=== PATIENT | female | born 1965 | race Caucasian/White ===

== ENCOUNTER → 2017-12-16 15:04 | Outpatient (CLI) | payer MEDICAID, SELFPAY ==
--- NOTE | 2017-12-16 15:09 | RAD_ITS ---
STUDY: X-RAY CHEST REASON FOR EXAM: Female, 52 years old. Defibrillator and Pacemaker placed on July 12, 2010. History of breast cancer, and R radical mastectomy TECHNIQUE: Frontal and lateral view of the chest. COMPARISON: July 06, 2014 FINDINGS: There is a left sided pacemaker battery pack. There are multiple metallic clips in the right axilla. This is consistent for a prior axillary dissection. There are mastectomy changes noted. The lungs are clear and expanded. There is no demonstrated pleural abnormality. Normal size heart. Normal mediastinum and sara. Normal visualized pulmonary arteries. Normal visualized aortic arch and descending thoracic aorta. There are diffuse degenerative changes of the visualized thoracic spine. Normal visualized ribs, clavicles, and shoulders. There is no demonstrated abnormality of the visualized soft tissue structures of the upper abdomen. RAD/Chest PA and Lateral IMPRESSION: There are no acute findings in the chest. Electronically Signed: Devante Kay MD at 16:46 EDT , Service support ,
[2017-12-16 16:39] LABS: Hematocrit 45.9 % (37-47); Hemoglobin 15.2 g/dl (12.0-15.0); Mean Corp Hgb Conc 33.1 g/gl (32-36); Mean Corpuscular Hgb 28.7 pg (27.0-32.0); Mean Corpuscular Volume 86.6 fL (81-99); Mean Platelet Vol. 12.3 fl (6.2-12.0); Platelet Count 229 K/mm3 (150-450); RBC Distribution Width CV 14.3 % (11.6-14.6); RBC Distribution Width SD 45.2 fl (35.1-43.9); White Blood Count 17.4 K/mm3 (4.4-11.0)
[2017-12-16 16:43] LABS: Scan Indicated on CBC? Y/N NO
[2017-12-16 16:47] LABS: International Normalized Ratio 1.1; Prothrombin Time (Protime)PT. 13.8 SECONDS (11.7-14.9)
[2017-12-16 17:06] LABS: Anion Gap 9 (5-15); BUN 14 mg/dL (7-18); Calcium,Total 8.9 mg/dL (8.5-10.1); Chloride 106 mmol/L (98-107); Creatinine, Serum 0.88 mg/dL (0.55-1.02); EST Glomerular Filtration Rate 71 mL/min (>60); Est Glom Filt Rate - Afr Amer 86 mL/min (>60); Glucose 108 mg/dL (74-106); Potassium 3.7 mmol/L (3.5-5.1); Sodium Level 137 mmol/L (136-145)
== END ==
PROVIDERS: Family Provider Student in an Organized Health Care Education/Training Program; PCP Student in an Organized Health Care Education/Training Program; Referring Provider Internal Medicine Cardiovascular Disease; Visit Provider Internal Medicine Cardiovascular Disease
DX: I42.0 Dilated cardiomyopathy (principal); I47.9 Paroxysmal tachycardia, unspecified; I47.1 Supraventricular tachycardia; I42.9 Cardiomyopathy, unspecified; I47.2 Ventricular tachycardia; R55 Syncope and collapse; Z95.810 Presence of automatic (implantable) cardiac defibrillator
CPT/HCPCS: 36415; 71046; 80048; 85027; 85610

== ENCOUNTER 2018-01-08 09:27 | Day surgery (SDC) | payer MEDICAID, SELFPAY ==
[2017-12-24 12:10] LABS: Bacteria 0 SEEN /hpf (None Seen); Mucous, Urine 0 SEEN /hpf (<or=2+); Red Blood Cells-Urine 0 SEEN /hpf (0-5); Squamous Epithelial Cells - UA 0 SEEN /hpf (5-10); White Blood Cells 0 SEEN /hpf (0-5)
[2017-12-24 12:37] LABS: Color, Urine Yellow (Yellow); Glucose, Dipstick Normal (Normal); Ketone-Dipstick Negative (Negative); Leukocyte Esterase-Dipstick Negative /ul (Negative); Nitrite-Dipstick Negative (Negative); Occult Blood-Urine Negative /ul (Negative); Protein-Dipstick Negative (Negative); Urine Bilirubin Dipstick Negative (Negative); Urine Clarity Clear (Clear); Urine Urobilinogen Normal (Normal); Urine pH 6.5 (5.0 - 8.0)
[2018-01-07 09:03] VITALS: BMI 51.0
--- NOTE | 2018-01-08 11:30 | OP.PCM_ITS ---
Operative Report Date of Procedure: 01/08/18 Preoperative diagnosis is device at end of life for normal battery depletion. Postoperative diagnosis same as above. After informed consent and IV antibiotics the patient was brought to the [facility] catheterization laboratory and the skin over the device was prepped and draped in the usual sterile manner. Intermittent boluses of Versed, fentanyl and propofol were used for sedation and analgesia as well as 1% subcutaneous lidocaine. An incision was made over the pre-existing device. Using blunt and Bovie dissection the pocket was opened and the device was removed. Careful attention was paid not to injure the pre-existing leads. The leads were removed from the device header and they were interrogated. There is normal lead function. Hemostasis was obtained. The pocket was flushed with antibiotic solution. The sponge and needle count were correct. The new device was brought to the field. The leads were placed in the appropriate position in the header and secured by the set screw. The leads and the device were then placed in the pocket. The pocket was closed with a deep layer of running 2-0 Vicryl, a superficial layer of running 4-0 Vicryl, skin with Steri-Strips which were covered with a rolled 4 x 4 and Tegaderm. Patient left the room with the device programmed to proper parameters and there were no complications. All lead parameters were tested and found to be functionally normal. The device is a single chamber dual coil [employer] ICD. Lead and device serial and model numbers are available in the chart documents provided by the device company indirect sales representative procedure summary.
== END 2018-01-08 13:15 | disposition home or self-care (01) ==
PROVIDERS: Family Provider Student in an Organized Health Care Education/Training Program; PCP Student in an Organized Health Care Education/Training Program; Referring Provider Internal Medicine Cardiovascular Disease; Visit Provider Internal Medicine Cardiovascular Disease
DX: Z45.010 Encounter for checking and testing of cardiac pacemaker pulse generator [battery] (principal); I42.9 Cardiomyopathy, unspecified; Z95.810 Presence of automatic (implantable) cardiac defibrillator; I47.1 Supraventricular tachycardia; I47.2 Ventricular tachycardia; F43.10 Post-traumatic stress disorder, unspecified; K21.9 Gastro-esophageal reflux disease without esophagitis; E03.9 Hypothyroidism, unspecified; E66.9 Obesity, unspecified; Z68.43 Body mass index [BMI] 50.0-59.9, adult; Z79.82 Long term (current) use of aspirin; Z79.899 Other long term (current) drug therapy; Z87.891 Personal history of nicotine dependence
CPT/HCPCS: 33262; 81001; 93641; 99152; J7040; J7050

== ENCOUNTER → 2018-02-12 13:37 | Outpatient (CLI) | payer MEDICAID, SELFPAY ==
[2018-01-07 09:03] VITALS: BMI 51.0
--- NOTE | 2018-02-12 13:39 | ECHOD_ITS ---
Reason For Study: ARRHYTHMIA Procedure This was a 2D Doppler, Color Flow transthoracic echocardiogram. Poor quality apical images due to body habitus. UNABLE TO USE DEFINITY DUE TO ADVERSE REACTION ON PREVIOUS STUDY. The study was technically difficult. Exam performed in department. Left Ventricle Normal LV size. Mild global left ventricular systolic dysfunction. The estimated ejection fraction is 40 %. No evidence for diastolic dysfunction. Right Ventricle Normal RV size. ICD or pacer leads identified within the right ventricle. Normal systolic function. Atria Normal left atrium. Normal right atrium. ICD or pacer leads identified within the right atrium. No doppler evidence for ASD. Mitral Valve There is no mitral annular calcification. Normal mitral valve. Mild (1+) mitral valve insufficiency. Tricuspid Valve Normal tricuspid valve. Trivial tricuspid valve insufficiency. Right ventricular systolic pressure estimated to be 22 mmHg. Aortic Valve The aortic valve is not well visualized. Pulmonic Valve The pulmonic valve is not well visualized. Trivial pulmonic valve insufficiency. Great Vessels Normal sized aortic root. Pericardium/Pleural No pericardial effusion. Medication DO NOT USE DEFINITY. MMode/2D Measurements & Calculations LVIDd: 4.7 cm IVSd: 0.89 cm Ao root diam: 2.7 cm LVIDs: 3.1 cm LVPWd: 0.95 cm RVDd: 3.1 cm FS: 34.7 % LAV(MOD-bp): 47.8 ml LA A4 area: 14.2 cm2 LA dimension(2D): 3.7 cm LAV(MOD-bp) Indexed: 22.2 ml/m2 LAV(MOD-sp2): 61.9 ml LAV(MOD-sp4): 35.4 ml RA A4 area: 11.4 cm2 Time Measurements MV dec time: 0.24 sec Doppler Measurements & Calculations MV E max ran: 66.9 cm/sec Lat Peak E' Ran: 9.2 cm/sec Med Peak E' Ran: 6.2 cm/sec MV A max ran: 51.4 cm/sec E/E' lat: 7.2 E/E' med: 10.8 MV E/A: 1.3 Ao V2 max: 112.5 cm/sec LV V1 max: 89.4 cm/sec PA V2 max: 89.2 cm/sec Ao max P.1 mmHg LV V1 max P.2 mmHg PI end-d ran: 108.5 cm/sec TR max ran: 216.5 cm/sec TR max P.8 mmHg Interpretation Summary The study was technically difficult. Mild global left ventricular systolic dysfunction. The estimated ejection fraction is 40 %. Mild (1+) mitral valve insufficiency. Trivial tricuspid valve insufficiency. Trivial pulmonic valve insufficiency. Right ventricular systolic pressure estimated to be 22 mmHg. No evidence for diastolic dysfunction. ICD or pacer leads identified within the right atrium ICD or pacer leads identified within the right ventricle. Ordering Physician: Chris Bang Referring Physician: TARA STACY Performed By: Iliana Ferrera, ALIDA, RVT
== END ==
PROVIDERS: Family Provider Student in an Organized Health Care Education/Training Program; PCP Student in an Organized Health Care Education/Training Program; Referring Provider Internal Medicine Cardiovascular Disease; Visit Provider Internal Medicine Cardiovascular Disease
DX: I47.1 Supraventricular tachycardia (principal); I42.9 Cardiomyopathy, unspecified; I47.2 Ventricular tachycardia; I47.9 Paroxysmal tachycardia, unspecified; Z95.810 Presence of automatic (implantable) cardiac defibrillator
CPT/HCPCS: 93306

== ENCOUNTER → 2018-11-09 10:51 | Outpatient (CLI) | payer MEDICAID, SELFPAY ==
[2018-09-23 15:16] VITALS: BMI 48.6
--- NOTE | 2018-11-09 10:52 | RAD_ITS ---
STUDY: X-RAY - RIGHT KNEE REASON FOR EXAM: Female, 53 years old. Pain TECHNIQUE: 4 view(s) of the knee. COMPARISON: None. FINDINGS: There is no evidence of fracture or dislocation. Moderate tricompartmental degenerative changes are present, greatest in the medial compartment. There are no radiodense foreign bodies. RAD/Knee 4 or More Views IMPRESSION: No fracture or dislocation. Moderate tricompartmental degenerative changes, greatest in the medial compartment. Electronically Signed: Barrie Rivas, at 19:07 EDT Tel , Service support ,
== END ==
PROVIDERS: Family Provider Student in an Organized Health Care Education/Training Program; PCP Student in an Organized Health Care Education/Training Program; Referring Provider Orthopaedic Surgery; Visit Provider Orthopaedic Surgery
DX: M17.11 Unilateral primary osteoarthritis, right knee (principal)
CPT/HCPCS: 73564

== ENCOUNTER → 2020-05-23 06:38 | Outpatient (CLI) | payer MEDICAID, SELFPAY ==
[2019-11-12 15:20] VITALS: BMI 48.2
[2020-05-11 10:28] VITALS: BMI 48.2
--- NOTE | 2020-05-23 06:40 | ECHOD_ITS ---
Reason For Study: Arrhythmia Procedure This was a 2D Doppler, Color Flow transthoracic echocardiogram. The study was technically difficult. UNABLE TO USE DEFINITY DUE TO ADVERSE REACTION ON PREVIOUS STUDY. Exam performed in department. Left Ventricle Normal LV size. Mild global left ventricular systolic dysfunction. The estimated ejection fraction is 45 %. Septal bounce. No evidence for diastolic dysfunction. Right Ventricle Normal RV size. ICD or pacer leads identified within the right ventricle. Normal systolic function. Atria Normal left atrium. Normal right atrium. ICD or pacer leads identified within the right atrium. No doppler evidence for ASD. Mitral Valve There is no mitral annular calcification. Normal mitral valve. Trivial mitral valve insufficiency. Tricuspid Valve Normal tricuspid valve. Trivial tricuspid valve insufficiency. Right ventricular systolic pressure estimated to be 21 mmHg. Aortic Valve Trisinus/trileaflet aortic valve. Normal aortic valve. Pulmonic Valve The pulmonic valve is not well visualized. Great Vessels Normal sized aortic root. Pericardium/Pleural No pericardial effusion. MMode/2D Measurements & Calculations LVIDd: 4.3 cm IVSd: 1.1 cm Ao root diam: 2.8 cm LVIDs: 3.4 cm LVPWd: 1.2 cm RVDd: 2.9 cm FS: 21.0 % LAV(MOD-bp): 26.8 ml LA A4 area: 13.2 cm2 LA dimension(2D): 3.4 cm LAV(MOD-bp) Indexed: 12.2 ml/m2 LAV(MOD-sp2): 23.4 ml LAV(MOD-sp4): 31.4 ml RA A4 area: 13.8 cm2 Doppler Measurements & Calculations MV E max ran: 57.1 cm/sec Lat Peak E' Ran: 6.5 cm/sec Med Peak E' Ran: 5.2 cm/sec MV A max ran: 76.3 cm/sec E/E' lat: 8.8 E/E' med: 10.9 MV E/A: 0.75 Ao V2 max: 116.9 cm/sec LV V1 max: 95.0 cm/sec PA V2 max: 96.5 cm/sec Ao max P.5 mmHg LV V1 max P.6 mmHg TR max ran: 211.4 cm/sec TR max P.0 mmHg ECHO/Echo Complete Interpretation Summary The study was technically difficult. Mild global left ventricular systolic dysfunction. The estimated ejection fraction is 45 %. Septal bounce. Trivial mitral valve insufficiency. Trivial tricuspid valve insufficiency. Right ventricular systolic pressure estimated to be 21 mmHg. No evidence for diastolic dysfunction. ICD or pacer leads identified within the right atrium ICD or pacer leads identified within the right ventricle. Ordering Physician: Wellington Melvin Referring Physician: Chris Bang Performed By: Neli Fontenot, [facility]
--- NOTE | 2020-05-23 09:24 | STRESSREP_ITS ---
Stress Test Report Date: 05-23-2020 Procedure: Pharmacologic stress nuclear imaging study Indications: Chest pain; CAD; cardiomyopathy; SVT; ventricular tachycardia; ICD Consent: Per the patient Procedure: The patient underwent pharmacologic (Regadenoson 0.4mg ) evaluation with a peak heart rate of 88 beats per minute (53%predicted maximal heart rate) and a peak blood pressure of 142/88 mmHg. The baseline ECG demonstrated sinus rhythm. The peak pharmacologic ECG demonstrated no obvious ECG changes. There were no cardiac dysrhythmias pretest, during pharmacologic infusion, or recovery. There was no complaint of chest discomfort during pharmacologic infusion or recovery. The examination was discontinued secondary to completion of protocol. Impression: 1. Pharmacologic (Regadenoson) evaluation 2. Peak pharmacologic ECG with no obvious ECG changes. 3. There were no cardiac dysrhythmias pretest, during pharmacologic infusion, or recovery. 4. Nuclear images pending Myocardial perfusion imaging study: Technique: The patient was injected with 14.9 millicuries of technetium 99m Cardiolite and subsequently rest SPECT Cardiolite nuclear imaging was obtained in the horizontal long, vertical long, and short axis views. The patient underwent pharmacologic (Regadenoson) evaluation with a peak heart rate of 88 beats per minute (53% percent predicted maximal heart rate) and a peak blood pressure of 142/88 mmHg. The patient was injected with 44.8 millicuries of technetium 99m Cardiolite and subsequently stress SPECT Cardiolite nuclear imaging was obtained in the horizontal long, vertical long, and short axis views. A gated Cardiolite study at peak stress was obtained. Interpretation: Rest and stress SPECT Cardiolite nuclear imaging status post realignment, normalization, and attenuation correction demonstrate relative uniform tracer uptake/myocardial perfusion appearing within normal limits at rest, however, status post stress there is an area of diminished myocardial perfusion/tracer uptake in portions of the distal anterior/anteroapical segments. There are similar type findings on the stress polar map images. There is end systolic thickening and brightening. The gated Cardiolite study demonstrates myocardial thickening and inward wall motion. The reported LVEF is 67%. Impression: 1. Rest and stress SPECT Cardiolite nuclear imaging demonstrate myocardial perfusion changes concerning for an area of stress-induced myocardial ischemia in portions of the distal anterior/anteroapical segments, however, an element of contribution from shifting soft tissue/breast attenuation not necessarily be excluded. 2. The gated Cardiolite study reports an LVEF of 67%. This note was generated with [employer] software. It may contain incorrect words, spelling, and punctuation that were not noted in checking the note before signing.
== END ==
PROVIDERS: PCP Student in an Organized Health Care Education/Training Program; Referring Provider Internal Medicine Cardiovascular Disease; Visit Provider Internal Medicine Cardiovascular Disease
DX: I47.1 Supraventricular tachycardia (principal); I47.2 Ventricular tachycardia; R55 Syncope and collapse; I42.0 Dilated cardiomyopathy; G47.33 Obstructive sleep apnea (adult) (pediatric); R07.9 Chest pain, unspecified; Z95.810 Presence of automatic (implantable) cardiac defibrillator
CPT/HCPCS: 78452; 93017; 93306; A9500; A4216; J2785

== ENCOUNTER 2020-06-14 15:54 | Inpatient (IN) | payer MEDICAID, SELFPAY ==
[2020-05-11 10:28] VITALS: BMI 48.2
--- NOTE | 2020-05-29 09:05 | HP.PCM_ITS ---
History and Physical Date of Admission: 06/13/20 [facility] History of Present Illness Details: ALEJANDRA KINSEY, is a 55 F who presents to the labelling machine operator today for a heart catheterization. She has a history of non-coronary artery disease related cardiomyopathy, SVT/ventricular tachycardia, syncope, s/p ICD. Office appointment on 05/11/2020 she acknowledged chest tightness. She underwent a nuclear stress test on 05/23/2030 that showed area of stress-induced myocardial ischemia in portions of the distal anterior/anteroapical segments, however, an element of contribution from shifting soft tissue/breast attenuation not necessarily be excluded. Thus, she will proceed with heart catheterization to assess further. She continues with chest pain that feels tight. This is intermittent. This aggravated with both rest and activity. This resolves on its own. This is short lasting. This located center chest. She denies radiation. She denies secondary symptoms. She rates this pain a 3-4/10. Pt denies arm, jaw, or neck discomfort. His exercise tolerance is stable. Pt denies symptoms of CHF, palpitations, lightheadedness, dizziness, near syncopal or syncopal episodes. Pt denies edema or claudication issues. Pt. denies orthopnea, PND, fever, chills, chronic cough, blood in urine, blood in stool, epistaxis, or myalgia. She is undergoing orthopedic injection to shoulder and knee. She states losing her balance. She states stress d/t neighbors health issues. She has not been using her CPAP mask as expected. Intake Vital Signs: See EMR Intake Visit Reasons: [facility] Architecture Drafter Required: No Accompanied by: none Is patient in pain?: No Allergies adhesive Allergy (Verified 05/11/20 10:23) Rash codeine Allergy (Verified 05/11/20 10:23) Other morphine Allergy (Verified 05/11/20 10:23) Itching tramadol Adverse Reaction (Verified 05/11/20 10:23) Unknown Medications See EMR ON LICENSE OF [facility] Medical History ICD (implantable cardioverter-defibrillator) in place (Chronic) Cardiomyopathy, dilated (Chronic) Paroxysmal tachycardia (Acute) Syncope and collapse (Chronic) SVT (supraventricular tachycardia) (Chronic) Obesity (Chronic) Ventricular tachycardia (Chronic) PTSD (post-traumatic stress disorder) (Acute) Right thyroid nodule (Acute) Carcinoma of breast (Chronic) GERD (gastroesophageal reflux disease) (Chronic) Hypothyroidism (Chronic) THALIA (obstructive sleep apnea) (Chronic) Hypotension (Resolved) Surgical History History of cardiac radiofrequency ablation (Resolved) History of cholecystectomy (Resolved) History of mastectomy (Resolved) History of nasal septoplasty (Resolved) History of repair of right rotator cuff (Resolved) History of total hysterectomy (Resolved) Hx of appendectomy (Resolved) thyroid FNA (Resolved) Social History (Updated 05/11/20 @ 13:27 by Willie Brown DIRECTOR BANKING, DIRECTOR BANKING-C) Smoking Status: Former smoker alcohol intake: never substance use type: does not use what type of physical activity do you participate in: walking frequency: 1-2 times per week ROS Const Const: Positive for fatigue; negative for weakness, body ache, fever(s) or chills ENT ENT: Positive for balance problems; negative for dizziness Cardio Chest Pain: Yes Palpitations: No Edema: None Muscle aches with walking: None Resp Respiratory: Negative for SOB with activity, SOB at rest, SOB orthopnea\SOB lying down or paroxysmal nocturnal dyspnea GI GI: Negative nausea, vomiting blood/hematemesis, bright, red blood in stools or black,tarry stools : Negative for hematuria or frequent nighttime urination/ nocturia Musc Musc: Positive for balance problems; negative for muscle aches/ myalgia Skin Skin: Negative non-healing lesions or rash Neuro Neuro: Negative for dizziness, lightheadedness, near syncope, syncope, orthostatic symptoms or weakness Endo Endo: Positive for fatigue Allergy Allergy/Immunology: Negative for rash Cardiology Exam Const Appearance: cooperative, healthy appearing, comfortable and no acute distress Nutritional Appearance: well nourished and obese Orientation: alert, awake and oriented x3 Head Head: normal to inspection Ears: hearing grossly normal bilaterally Nose: external nose normal Face and Sinus: face symmetric Mouth: oral mucosae normal Eyes General: appearance normal, both eyes and all related structures Eyelids: eyelids normal EOM: EOM intact bilaterally Neck Neck: normal visual inspection and no JVD Carotids: normal carotid upstroke Chest Chest inspection: normal inspection of the chest, symmetric chest movement and normal respiratory effort; negative cough Auscultation: Bilateral: Clear to Auscultation Cardio Rate: regular rate Rhythm: regular rhythm Heart sounds: S1 normal and S2 normal; negative rub, gallop or murmur GI GI: normal to inspection and obese Neuro General: alert, awake, oriented x3 and CN's II-XI intact bilaterally Skin Skin: no rashes or lesions noted Extremities Pulses: Normal: Right Radial Pulse, Left Radial Pulse, Diminished: Right Posterior Tibial Pulse, Left Posterior Tibial Pulse Lower Extremity Edema: None: Bilateral, Color Changes: Bilateral (purple di scoloration at toes) Psych Psychological: normal affect Assessment & Plan 1. Chest pain R07.9 Plan On account of symptoms and abnormal stress test, she will proceed with heart catheterization. Her heart catheterization November 2013 showed left main is angiographically normal, LAD with minimal luminal irregularities, LCx with minimal luminal irregularities, and RCA that was a large dominant vessel with minimal luminal irregularities. Based on results, further recommendation will be made. She was started on Plavix therapy with respect to heart catheterization. Her heart catheterization will also guide treatment in respect to flecainide therapy. 2. Cardiomyopathy, dilated I42.0 Plan After last office visit she underwent an echocardiogram on 05/23/2020. This showed an ejection fraction of 45%. Her RVSP was noted to be 21 mmHg. Over time, we could consider medication adjustment such of changing metoprolol tartrate to Coreg therapy or adding additional agent such as YESI inhibito r/ARB/ARNI. 3. Ventricular tachycardia I47.2 Plan This appears stable. She will continue current medical therapy which includes metoprolol and flecainide. We will continue to monitor. 4. ICD (implantable cardioverter-defibrillator) in place Z95.810 Plan At her last office visit it was decided to stop routine ICD evaluation. She was asked to contact our office if she desires reinitiating routine ICD evaluations at any time. 5. Syncope and collapse R55 Plan There has not been any recurrence. We will continue to monitor. 6. SVT (supraventricular tachycardia) I47.1 Plan She denies any symptomatic recurrence. She will continue current beta-jacquelin and we will continue to monitor. Supplemental Info Supplemental Information Echocardiogram from 05/23/2020: Interpretation Summary The study was technically difficult. Mild global left ventricular systolic dysfunction. The estimated ejection fraction is 45 %. Septal bounce. Trivial mitral valve insufficiency. Trivial tricuspid valve insufficiency. Right ventricular systolic pressure estimated to be 21 mmHg. No evidence for diastolic dysfunction. ICD or pacer leads identified within the right atrium ICD or pacer leads identified within the right ventricle. Stress Test Report Date: 05-23-2020 Procedure: Pharmacologic stress nuclear imaging study Indications: Chest pain; CAD; cardiomyopathy; SVT; ventricular tachycardia; ICD Consent: Per the patient Procedure: The patient underwent pharmacologic (Regadenoson 0.4mg ) evaluation with a peak heart rate of 88 beats per minute (53%predicted maximal heart rate) and a peak blood pressure of 142/88 mmHg. The baseline ECG demonstrated sinus rhythm. The peak pharmacologic ECG demonstrated no obvious ECG changes. There were no cardiac dysrhythmias pretest, during pharmacologic infusion, or recovery. There was no complaint of chest discomfort during pharmacologic infusion or recovery. The examination was discontinued secondary to completion of protocol. Impression: 1. Pharmacologic (Regadenoson) evaluation 2. Peak pharmacologic ECG with no obvious ECG changes. 3. There were no cardiac dysrhythmias pretest, during pharmacologic infusion, or recovery. 4. Nuclear images pending Myocardial perfusion imaging study: Technique: The patient was injected with 14.9 millicuries of technetium 99m Cardiolite and subsequently rest SPECT Cardiolite nuclear imaging was obtained in the horizontal long, vertical long, and short axis views. The patient underwent pharmacologic (Regadenoson) evaluation with a peak heart rate of 88 beats per minute (53% percent predicted maximal heart rate) and a peak blood pressure of 142/88 mmHg. The patient was injected with 44.8 millicuries of technetium 99m Cardiolite and subsequently stress SPECT Cardiolite nuclear imaging was obtained in the horizontal long, vertical long, and short axis views. A gated Cardiolite study at peak stress was obtained. Interpretation: Rest and stress SPECT Cardiolite nuclear imaging status post realignment, normalization, and attenuation correction demonstrate relative uniform tracer uptake/myocardial perfusion appearing within normal limits at rest, however, status post stress there is an area of diminished myocardial perfusion/tracer uptake in portions of the distal anterior/anteroapical segments. There are similar type findings on the stress polar map images. There is end systolic thickening and brightening. The gated Cardiolite study demonstrates myocardial thickening and inward wall motion. The reported LVEF is 67%. Impression: 1. Rest and stress SPECT Cardiolite nuclear imaging demonstrate myocardial perfusion changes concerning for an area of stress-induced myocardial ischemia in portions of the distal anterior/anteroapical segments, however, an element of contribution from shifting soft tissue/breast attenuation not necessarily be excluded. 2. The gated Cardiolite study reports an LVEF of 67%. Heart catheterization from November 2013 Showed a left main coronary artery that was angiographically normal, LAD with minimal luminal irregularities, LCx with minimal luminal irregularities, and RCA that was a large dominant vessel with minimal luminal irregularities. Her estimated ejection fraction was 50%, and it was noted that she had mild mitral valve regurgitation which appeared to be partially PVC induced. Labs LDL Cholesterol 106 mg/dL (0-130) 04/14/14 HDL Cholesterol 43 mg/dL (40-) 04/14/14 Triglycerides 175 mg/dL (0-199) 04/14/14 VLDL Cholesterol 35 mg/dL (5-40) 04/14/14 Diagnostics Electrocardiogram 05/11/20 Echocardiogram 02/12/18 Pacemaker Check 01/23/18 Abdomen Ultrasound 10/14/14 Chest X-Ray 12/16/17 Procedure Criteria Procedure Type: Elective COVID Risk Discussion: The surgeon/proceduralist and patient have discussed in detail the risk of exposure to and/or potential harm posed by the COVID-19 virus with having a surgery/procedure at this time versus the risk of delaying the surgery/procedu re. It is not possible to know either the risk of delaying the surgery or procedure or chance of getting an infection with perfect accuracy, but a joint decision was made between the patient and the surgeon/proceduralist to proceed at this time with the scheduled surgery/procedure as indicated on the consent form.
--- NOTE | 2020-05-31 11:50 | RAD_ITS ---
STUDY: X-RAY CHEST REASON FOR EXAM: Female, 55 years old. Pre-operative TECHNIQUE: Frontal and lateral views COMPARISON: 12/16/2017 FINDINGS: Surgical clips over the right axilla. Stable left-sided pacemaker. The lungs are clear and expanded. There is no demonstrated pleural abnormality. Normal size heart. Normal mediastinum and sara. Normal visualized pulmonary arteries. Normal visualized aortic arch and descending thoracic aorta. Normal visualized thoracic spine. Normal visualized ribs, clavicles, and shoulders. There is no demonstrated abnormality of the visualized soft tissue structures of the upper abdomen. RAD/Chest PA and Lateral IMPRESSION: Normal x-ray examination of the chest. Electronically Signed: Olu Perkins DO at 16:56 EDT Tel [phone], Service support ,
[2020-05-31 12:27] LABS: Absolute Lymphocyte Count 2.05 X10^3/uL (0.83-4.51); Basophil# 0.05 X10^3/uL; Basophil% 0.5 % (0-1); Hematocrit 48.7 % (37-47); Hemoglobin 15.1 g/dL (12.0-15.0); Lymphocyte # 2.05 X10^3/ul (4.0); Lymphocyte % 20.7 % (19-41); Mean Corpuscular Hgb 28.6 pg (27.0-32.0); Mean Corpuscular Volume 92.2 fL (81-99); Mean Platelet Vol. 10.6 fl (6.2-12.0); Monocyte# 0.68 X10^3/uL; Monocyte% 6.9 % (0-10); NRBC Flagged by Analyzer 0 % (0-5); Neutrophil # 6.97 X10^3/uL (2.7-7.7); Neutrophil % 70.4 % (47-70); Platelet Count 244 K/mm3 (150-450); RBC Distribution Width CV 14.8 % (11.6-14.6); RBC Distribution Width SD 50.4 fl (35.1-43.9); Red Blood Count 5.28 M/mm3 (4.2-5.4); White Blood Count 9.9 K/mm3 (4.4-11.0)
[2020-05-31 12:39] LABS: Prothrombin Time (Protime)PT. 12.5 SECONDS (11.7-14.9)
[2020-05-31 12:40] LABS: Partial Thromboplast Time 25.9 Seconds (24.1-36.2)
[2020-05-31 12:46] LABS: Anion Gap 1 (5-15); BUN 16 mg/dL (7-18); Calcium,Total 9.4 mg/dL (8.5-10.1); Chloride 107 mmol/L (98-107); Creatinine, Serum 1.07 mg/dL (0.55-1.02); EST Glomerular Filtration Rate 56 mL/min (>60); Est Glom Filt Rate - Afr Amer 68 mL/min (>60); Glucose 89 mg/dL (74-106); Potassium 4.7 mmol/L (3.5-5.1); Sodium Level 137 mmol/L (136-145)
[2020-06-12 07:05] VITALS: BMI 48.2
[2020-06-13] VITALS (14 sets, daily range): BP systolic 133–170; BP diastolic 77–111; PULSE 75–87; RESP 16–18; TEMP 36.3–37; O2SAT 99–100; BMI 50.3
--- NOTE | 2020-06-13 07:42 | PCM.HP.BLA ---
Problem List (1) Abnormal stress test Status: Acute (2) Cardiomyopathy, dilated Status: Chronic (3) Syncope and collapse Status: Chronic (4) SVT (supraventricular tachycardia) Status: Chronic (5) Ventricular tachycardia Status: Chronic (6) ICD (implantable cardioverter-defibrillator) in place Status: Chronic History and Physical Date of Admission: 06/13/20 [facility] Medical Records Department [address] [place] [address] History and Physical 05/29/20 0905 MR#: [id number] Acct: [id number] Name: ALEJANDRA KINSEY Rep #: [id number] : 1965 55 From: Willie Brown NP ECONOMIC SPECIALIST-C PCP: Dr. Wellington Melvin, DO Status: PRE [facility] Location: [facility] History and Physical Date of Admission: 06/13/20 HPI HPI History of Present Illness Details: ALEJANDRA KINSEY, is a 55 F who presents to the cardiovascular lab director today for a heart catheterization. She has a history of non-coronary artery disease related cardiomyopathy, SVT/ventricular tachycardia, syncope, s/p ICD. Office appointment on 05/11/2020 she acknowledged chest tightness. She underwent a nuclear stress test on 05/23/2030 that showed area of stress-induced myocardial ischemia in portions of the distal anterior/anteroapical segments, however, an element of contribution from shifting soft tissue/breast attenuation not necessarily be excluded. Thus, she will proceed with heart catheterization to assess further. She continues with chest pain that feels tight. This is intermittent. This aggravated with both rest and activity. This resolves on its own. This is short lasting. This located center chest. She denies radiation. She denies secondary symptoms. She rates this pain a 3-4/10. Pt denies arm, jaw, or neck discomfort. His exercise tolerance is stable. Pt denies symptoms of CHF, palpitations, lightheadedness, dizziness, near syncopal or syncopal episodes. Pt denies edema or claudication issues. Pt. denies orthopnea, PND, fever, chills, chronic cough, blood in urine, blood in stool, epistaxis, or myalgia. She is undergoing orthopedic injection to shoulder and knee. She states losing her balance. She states stress d/t neighbors health issues. She has not been using her CPAP mask as expected. Intake Vital Signs: See EMR Intake Visit Reasons: [facility] Spray Drier Required: No Accompanied by: none Is patient in pain?: No Allergies adhesive Allergy (Verified 05/11/20 10:23) Rash codeine Allergy (Verified 05/11/20 10:23) Other morphine Allergy (Verified 05/11/20 10:23) Itching tramadol Adverse Reaction (Verified 05/11/20 10:23) Unknown Medications See EMR [facility] Medical History ICD (implantable cardioverter-defibrillator) in place (Chronic) Cardiomyopathy, dilated (Chronic) Paroxysmal tachycardia (Acute) Syncope and collapse (Chronic) SVT (supraventricular tachycardia) (Chronic) Obesity (Chronic) Ventricular tachycardia (Chronic) PTSD (post-traumatic stress disorder) (Acute) Right thyroid nodule (Acute) Carcinoma of breast (Chronic) GERD (gastroesophageal reflux disease) (Chronic) Hypothyroidism (Chronic) THALIA (obstructive sleep apnea) (Chronic) Hypotension (Resolved) Surgical History History of cardiac radiofrequency ablation (Resolved) History of cholecystectomy (Resolved) History of mastectomy (Resolved) History of nasal septoplasty (Resolved) History of repair of right rotator cuff (Resolved) History of total hysterectomy (Resolved) Hx of appendectomy (Resolved) thyroid FNA (Resolved) Social History (Updated 05/11/20 @ 13:27 by Willie Brown ECONOMIC SPECIALIST, ECONOMIC SPECIALIST-C) Smoking Status: Former smoker alcohol intake: never substance use type: does not use what type of physical activity do you participate in: walking frequency: 1-2 times per week ROS Const Const: Positive for fatigue; negative for weakness, body ache, fever(s) or chills ENT ENT: Positive for balance problems; negative for dizziness Cardio Chest Pain: Yes Palpitations: No Edema: None Muscle aches with walking: None Resp Respiratory: Negative for SOB with activity, SOB at rest, SOB orthopnea\SOB lying down or paroxysmal nocturnal dyspnea GI GI: Negative nausea, vomiting blood/hematemesis, bright, red blood in stools or black,tarry stools : Negative for hematuria or frequent nighttime urination/ nocturia Musc Musc: Positive for balance problems; negative for muscle aches/ myalgia Skin Skin: Negative non-healing lesions or rash Neuro Neuro: Negative for dizziness, lightheadedness, near syncope, syncope, orthostatic symptoms or weakness Endo Endo: Positive for fatigue Allergy Allergy/Immunology: Negative for rash Cardiology Exam Const Appearance: cooperative, healthy appearing, comfortable and no acute distress Nutritional Appearance: well nourished and obese Orientation: alert, awake and oriented x3 Head Head: normal to inspection Ears: hearing grossly normal bilaterally Nose: external nose normal Face and Sinus: face symmetric Mouth: oral mucosae normal Eyes General: appearance normal, both eyes and all related structures Eyelids: eyelids normal EOM: EOM intact bilaterally Neck Neck: normal visual inspection and no JVD Carotids: normal carotid upstroke Chest Chest inspection: normal inspection of the chest, symmetric chest movement and normal respiratory effort; negative cough Auscultation: Bilateral: Clear to Auscultation Cardio Rate: regular rate Rhythm: regular rhythm Heart sounds: S1 normal and S2 normal; negative rub, gallop or murmur GI GI: normal to inspection and obese Neuro General: alert, awake, oriented x3 and CN's II-XI intact bilaterally Skin Skin: no rashes or lesions noted Extremities Pulses: Normal: Right Radial Pulse, Left Radial Pulse, Diminished: Right Posterior Tibial Pulse, Left Posterior Tibial Pulse Lower Extremity Edema: None: Bilateral, Color Changes: Bilateral (purple discoloration at toes) Psych Psychological: normal affect Assessment & Plan 1. Chest pain R07.9 Plan On account of symptoms and abnormal stress test, she will proceed with heart catheterization. Her heart catheterization November 2013 showed left main is angiographically normal, LAD with minimal luminal irregularities, LCx with minimal luminal irregularities, and RCA that was a large dominant vessel with minimal luminal irregularities. Based on results, further recommendation will be made. She was started on Plavix therapy with respect to heart catheterization. Her heart catheterization will also guide treatment in respect to flecainide therapy. 2. Cardiomyopathy, dilated I42.0 Plan After last office visit she underwent an echocardiogram on 05/23/2020. This showed an ejection fraction of 45%. Her RVSP was noted to be 21 mmHg. Over time, we could consider medication adjustment such of changing metoprolol tartrate to Coreg therapy or adding additional agent such as YESI inhibitor/ARB/ARNI. 3. Ventricular tachycardia I47.2 Plan This appears stable. She will continue current medical therapy which includes metoprolol and flecainide. We will continue to monitor. 4. ICD (implantable cardioverter-defibrillator) in place Z95.810 Plan At her last office visit it was decided to stop routine ICD evaluation. She was asked to contact our office if she desires reinitiating routine ICD evaluations at any time. 5. Syncope and collapse R55 Plan There has not been any recurrence. We will continue to monitor. 6. SVT (supraventricular tachycardia) I47.1 Plan She denies any symptomatic recurrence. She will continue current beta-jacquelin and we will continue to monitor. Supplemental Info Supplemental Information Echocardiogram from 05/23/2020: Interpretation Summary The study was technically difficult. Mild global left ventricular systolic dysfunction. The estimated ejection fraction is 45 %. Septal bounce. Trivial mitral valve insufficiency. Trivial tricuspid valve insufficiency. Right ventricular systolic pressure estimated to be 21 mmHg. No evidence for diastolic dysfunction. ICD or pacer leads identified within the right atrium ICD or pacer leads identified within the right ventricle. Stress Test Report Date: 05-23-2020 Procedure: Pharmacologic stress nuclear imaging study Indications: Chest pain; CAD; cardiomyopathy; SVT; ventricular tachycardia; ICD Consent: Per the patient Procedure: The patient underwent pharmacologic (Regadenoson 0.4mg ) evaluation with a peak heart rate of 88 beats per minute (53%predicted maximal heart rate) and a peak blood pressure of 142/88 mmHg. The baseline ECG demonstrated sinus rhythm. The peak pharmacologic ECG demonstrated no obvious ECG changes. There were no cardiac dysrhythmias pretest, during pharmacologic infusion, or recovery. There was no complaint of chest discomfort during pharmacologic infusion or recovery. The examination was discontinued secondary to completion of protocol. Impression: 1. Pharmacologic (Regadenoson) evaluation 2. Peak pharmacologic ECG with no obvious ECG changes. 3. There were no cardiac dysrhythmias pretest, during pharmacologic infusion, or recovery. 4. Nuclear images pending Myocardial perfusion imaging study: Technique: The patient was injected with 14.9 millicuries of technetium 99m Cardiolite and subsequently rest SPECT Cardiolite nuclear imaging was obtained in the horizontal long, vertical long, and short axis views. The patient underwent pharmacologic (Regadenoson) evaluation with a peak heart rate of 88 beats per minute (53% percent predicted maximal heart rate) and a peak blood pressure of 142/88 mmHg. The patient was injected with 44.8 millicuries of technetium 99m Cardiolite and subsequently stress SPECT Cardiolite nuclear imaging was obtained in the horizontal long, vertical long, and short axis views. A gated Cardiolite study at peak stress was obtained. Interpretation: Rest and stress SPECT Cardiolite nuclear imaging status post realignment, normalization, and attenuation correction demonstrate relative uniform tracer uptake/myocardial perfusion appearing within normal limits at rest, however, status post stress there is an area of diminished myocardial perfusion/tracer uptake in portions of the distal anterior/anteroapical segments. There are similar type findings on the stress polar map images. There is end systolic thickening and brightening. The gated Cardiolite study demonstrates myocardial thickening and inward wall motion. The reported LVEF is 67%. Impression: 1. Rest and stress SPECT Cardiolite nuclear imaging demonstrate myocardial perfusion changes concerning for an area of stress-induced myocardial ischemia in portions of the distal anterior/anteroapical segments, however, an element of contribution from shifting soft tissue/breast attenuation not necessarily be excluded. 2. The gated Cardiolite study reports an LVEF of 67%. Heart catheterization from November 2013 Showed a left main coronary artery that was angiographically normal, LAD with minimal luminal irregularities, LCx with minimal luminal irregularities, and RCA that was a large dominant vessel with minimal luminal irregularities. Her estimated ejection fraction was 50%, and it was noted that she had mild mitral valve regurgitation which appeared to be partially PVC induced. Labs LDL Cholesterol 106 mg/dL (0-130) 04/14/14 HDL Cholesterol 43 mg/dL (40-) 04/14/14 Triglycerides 175 mg/dL (0-199) 04/14/14 VLDL Cholesterol 35 mg/dL (5-40) 04/14/14 Diagnostics Electrocardiogram 05/11/20 Echocardiogram 02/12/18 Pacemaker Check 01/23/18 Abdomen Ultrasound 10/14/14 Chest X-Ray 12/16/17 Procedure Criteria Procedure Type: Elective COVID Risk Discussion: The surgeon/proceduralist and patient have discussed in detail the risk of exposure to and/or potential harm posed by the COVID-19 virus with having a surgery/procedure at this time versus the risk of delaying the surgery/procedure. It is not possible to know either the risk of delaying the surgery or procedure or chance of getting an infection with perfect accuracy, but a joint decision was made between the patient and the surgeon/proceduralist to proceed at this time with the scheduled surgery/procedure as indicated on the consent form. Date Willie Bunch Signature: Date (if applicable) CC: ~ Draft I have re-examined the patient. There are no clinical changes since date of exam.
--- NOTE | 2020-06-13 11:00 | EKG12_ITS ---
Test Reason : Blood Pressure : / mmHG Vent. Rate : 069 BPM Atrial Rate : 069 BPM P-R Int : 174 ms QRS Dur : 072 ms QT Int : 376 ms P-R-T Axes : 050 010 059 degrees QTc Int : 402 ms Normal sinus rhythm Normal ECG When compared with ECG of 15-JUN-2020 05:28, MANUAL COMPARISON REQUIRED, DATA IS UNCONFIRMED Confirmed by SHA DAVALOS, ANITA ([id number]), production editor MIMI CHANG ([id number]) on 06/16/2020 8:27:41 AM Referred By: Chris Bang Confirmed By:REYNALDO DALTON MD
--- NOTE | 2020-06-13 11:30 | CL.I_ITS ---
Patient Name: ALEJANDRA KINSEY Study Date: 06/13/2020 Performing: Codey Cunningham MD Ht: 63 inches 160 cm : 1965 Wt: 271.5 lbs 123 kg Age: 55 Gender: female BSA: 2.2 PROCEDURE(S) PERFORMED [id number] W OR WO PTCA, SINGLE CORONARY ARTERY CLINICAL PROFILE AND CO-MORBIDITIES Indications: New Onset Angina <= 2 months Heart Failure: None Stress/Imaging Stress Test w/SPECT MPI: Yes Result: Positive Intermediate Risk Stress Test with S PECT MPI: Positive Intermediate Risk CAD Presentations: Unstable angina. CONCLUSIONS Successful CURTIS to the mLAD (Orsiro 3.5 x 15mm stent) RECOMMENDATIONS DESCRIPTION OF PROCEDURE The patient arrived to the procedure lab. The risks and benefits of the procedure as well as a full d escription of our services here and current unavailability of surgical backup were fully explained to the patient and/or their significant other prior to the catheterization. The Timeout was completed, verifying the correct patient and procedure. The patient's procedural site was prepped and draped in the usual fashion. Local anesthetic was given subcutaneously to right radial region with Lidocaine 2% Using a modified Seldinger technique,arterial access was obtained via the right radial artery, a 6Fr sheath was inserted. Right Coronary Artery selective angiography was then performed in multiple view s using a 5 Fr. 4.0 [place] catheter. Left Coronary Artery selective angiography was performed in multi ple views using a 5 Fr. 4.0 [place] catheter. XB 3.0 Guide catheter was inserted and engaged into the LCA. [employer] [place] Guide wire was advance d to the LAD. Mazin Pro 2.5 x 10 Balloon catheter was inserted. Balloon catheter was advanced acros s lesion in the LAD, mid. PTCA balloon inflated at 14 atms for 39 secs. Osiro 3.5 x 15 Drug Eluting s tent was inserted. Drug Eluting stent was advanced across the lesion in the LAD, mid. Mazin Ru NC 3.5 x 12 Balloon catheter was inserted. Balloon catheter was inserted post stent. Angiogram performed post balloon dilatation. The arterial sheath was pulled and a TR Band was applied for hemostasis INTERVENTION INFORMATION LESION SITE: LAD (Mid) Lesion Complexity: High/C, chronic total occlusion: No, lesion at bifurcation: No, thrombus present: No, lesion length: 12 mm, culprit lesion: Yes, Previously treated lesion: No Pre Stenosis: 80 % Pre intervention REBECCA flow: 3 PROCEDURE: Drug Eluting Stent with pre and post dilatation (Mazin pro 2.5 x 10mm for predilatation, Orsiro 3.5 x 15mm stent post dilated with Mazin Ru 3.5 x 12mm ballloon at 16 carisa) Post Stenosis: 0 % Post intervention REBECCA flow: 3 Lesion Devices: Cardinal 6 Fr XB3.0 100cm Guide Catheter [place] .014 [employer] [place] Straight 190cm COMPLICATIONS No Complications PROCEDURE MEDICATIONS Versed 1 mg IV Versed 1 mg IV Versed 1 mg IV Versed 1 mg IV Fentanyl 50 mcg IV Fentanyl 50 mcg IV Oxygen: 2 L/min via nasal cannula Heparin diluted in 23cc Heparinized saline. Patient given 10cc IA of this solution. 06/13/2020 09:00: 22 Heparin diluted in 23cc Heparinized saline. Patient given 10cc IA of this solution. 06/13/2020 09:00: 22 Heparin 34530 unit(s) IV 06/13/2020 10:23:07 Nitro 200 mcg IC 06/13/2020 10:12:58 Verapamil 2.5mg, Ntg 100mcgs, 2000 units of Heparin diluted in 23cc Heparinized saline. Patient give n 10cc IA of this solution. 06/13/2020 09:00:22 IV Bolus: .9 NaCl 500 ml total 06/13/2020 09:48:15 SUMMARY OF HEMODYNAMIC DATA Time AIR REST ECG 08:14:43 AO 141/80 (100) SA 09:03:08 AO 141/81 (107) 09:27:34 Signed By Codey Cunningham MD On 06/13/2020 11:29:58 Codey Cunningham MD
[2020-06-13] MEDS: 0.9% Normal Saline 1,000 ML 80 ML IV (12:19)
[2020-06-13] MEDS: Acetaminophen 325 MG Tablet 650 MG PO ×2 (14:18→19:49)
[2020-06-13] MEDS: tiZANidine HCl 2 MG Tablet PO ×2 (15:46→22:52)
--- NOTE | 2020-06-13 15:56 | CL.D_ITS ---
Patient Name: ALEJANDRA KINSEY Study Date: 06/13/2020 Performing: Chris Bang MD Ht: 63 inches 160 cm : 1965 Wt: 271.5 lbs 123 kg Age: 55 Gender: female BSA: 2.2 PROCEDURE(S) PERFORMED [id number]/COR [id number] W OR WO PTCA, SINGLE CORONARY ARTERY CLINICAL PROFILE AND INDICATIONS Indications: New Onset Angina <= 2 months, Suspected CAD Heart Failure: None Stress/Imaging Stress Test w/SPECT MPI: Yes Result: Positive Intermediate RiskStress Test with SP ECT MPI: Positive Intermediate Risk Angina Classification Anginal Classification w/in 2 Weeks: CCS III CAD Presentations: Unstable angina. Stable angina. CONCLUSIONS [place] Multivessel CAD RECOMMENDATIONS Risk factor modification Medical therapy Referred for immediate PCI DESCRIPTION OF PROCEDURE The patient arrived to the procedure lab. The risks and benefits of the procedure as well as a full d escription of our services here and current unavailability of surgical backup were fully explained to the patient and/or their significant other prior to the catheterization. The Timeout was completed, verifying the correct patient and procedure. The patient's procedural site was prepped and draped in the usual fashion. Local anesthetic was given subcutaneously to right radial region with Lidocaine 2% . Using a modified Seldinger technique, arterial access was obtained via the right radial artery, a 6 Fr sheath was inserted. Right Coronary Artery selective angiography was then performed in multiple v iews using a 5 Fr. 4.0 [place] catheter. Left Coronary Artery selective angiography was performed in mu ltiple views using a 5 Fr. 4.0 [place] catheter.The arterial sheath was pulled and a TR Band was applie d for hemostasis CORONARY ANGIOGRAPHY DOMINANCE: Right Dominant LEFT HEART ASSESSMENT Left Ventricular Ejection Fraction: Not assessed LEFT MAIN: Angiographically normal LEFT ANTERIOR DESCENDING ARTERY: MID LAD: hazy: 85 % Stenosis with no angiographically significant appearing change s/p NTG IC (200 mc g) CIRCUMFLEX ARTERY: Mild luminal irregularities RIGHT CORONARY ARTERY: Mild luminal irregularities COMPLICATIONS No Complications PROCEDURE MEDICATIONS Versed 1 mg IV Versed 1 mg IV Versed 1 mg IV Versed 1 mg IV Fentanyl 50 mcg IV Fentanyl 50 mcg IV Oxygen: 2 L/min via nasal cannula Heparin diluted in 23cc Heparinized saline. Patient given 10cc IA of this solution. 06/13/2020 09:00: 22 Heparin diluted in 23cc Heparinized saline. Patient given 10cc IA of this solution. 06/13/2020 09:00: 22 Heparin 95797 unit(s) IV 06/13/2020 10:23:07 Nitro 200 mcg IC 06/13/2020 10:12:58 Verapamil 2.5mg, Ntg 100mcgs, 2000 units of Heparin diluted in 23cc Heparinized saline. Patient give n 10cc IA of this solution. 06/13/2020 09:00:22 IV Bolus: .9 NaCl 500 ml total 06/13/2020 09:48:15 SUMMARY OF HEMODYNAMIC DATA Time AIR REST ECG 08:14:43 AO 141/80 (100) SA 09:03:08 AO 141/81 (107) 09:27:34 Signed By Chris Bang MD On 06/13/2020 15:55:59 Chris Bang MD
[2020-06-13] MEDS: Potassium Chloride Oral Tablet 20 MEQ 40 MEQ PO (17:43)
[2020-06-13] MEDS: LORazepam 0.5 MG Tablet PO (19:49)
--- NOTE | 2020-06-13 21:00 | PN.CARD_ITS ---
Subjectve: The patient is status post diagnostic cardiac catheterization. She appears to be resting comfortably at the moment with the exception of having some generalized sensation of anxiety and right upper extremity discomfort. Objective: Vital Signs Temp Pulse Resp BP Pulse Ox 97.3 F L 81 18 150/93 H 100 06/13/20 15:00 06/13/20 19:00 06/13/20 15:00 06/13/20 15:00 06/13/20 15:00 Oxygen Delivery Method Room Air Weight: 283 lb 12.8 oz Body Mass Index (BMI) 50.3 Intake and Output for Last 24 Hours 06/11/20 06/12/20 06/13/20 23:59 23:59 23:59 Intake Total 1378.67 / 1378.67 Balance 1378.67 / 1378.67 General: Awake, Alert, Oriented x 3, Cooperative, No Acute Distress, Obese HEENT: Atraumatic, Normocephalic, PERRL, EOMI, Sclera Non Icteric Neck: Supple, Good ROM, No JVD Lungs: Clear to auscultation Cardiovascular: Regular Rhythm, Normal S2 Vascular: Normal Radial Pulses Abdomen: Bowel Sounds Present, Soft Extremities: No edema Neurological: No Focal Motor or Sensory Deficit Psych/Mental Status: Anxious Rhythm: Sinus rhythm CONCLUSIONS [place] Multivessel CAD RECOMMENDATIONS Risk factor modification Medical therapy Referred for immediate PCI DESCRIPTION OF PROCEDURE The patient arrived to the procedure lab. The risks and benefits of the procedure as well as a full description of our services here and current unavailability of surgical backup were fully explained to the patient and/or their significant other prior to the catheterization. The Timeout was completed, verifying the correct patient and procedure. The patient's procedural site was prepped and draped in the usual fashion. Local anesthetic was given subcutaneously to right radial region with Lidocaine 2%. Using a modified Seldinger technique, arterial access was obtained via the right radial artery, a 6Fr sheath was inserted. Right Coronary Artery selective angiography was then performed in multiple views using a 5 Fr. 4.0 [place] catheter. Left Coronary Artery selective angiography was performed in multiple views using a 5 Fr. 4.0 [place] catheter.The arterial sheath was pulled and a TR Band was applied for hemostasis CORONARY ANGIOGRAPHY DOMINANCE: Right Dominant LEFT HEART ASSESSMENT Left Ventricular Ejection Fraction: Not assessed LEFT MAIN: Angiographically normal LEFT ANTERIOR DESCENDING ARTERY: MID LAD: hazy: 85 % Stenosis with no angiographically significant appearing change s/p NTG IC (200 mcg) CIRCUMFLEX ARTERY: Mild luminal irregularities RIGHT CORONARY ARTERY: Mild luminal irregularities PCI: CONCLUSIONS Successful CURTIS to the mLAD (Orsiro 3.5 x 15mm stent) Medical Necessity - Tobacco Use Smoking Status: Former smoker Assessment/Plan 1. CAD status post LAD PTCA/CURTIS The patient has developed CAD. She has now undergone LAD PTCA/CURTIS. She will need to continue medical management as deemed appropriate. 2. SVT/VT Patient has a combination of SVT and VT. She has been on medical management with beta-blockers and antiarrhythmic therapy with flecainide. She now has developed CAD which raises concern about continuation of a Type Ic agent such as flecainide. Her case was reviewed with Dr. Cobb of [facility] electrophysiology. At the present time consideration has been given to altering the patient's antiarrhythmic therapy from her flecainide to an agent such as a Type III agent being sotalol. This would require temporary interruption of her flecainide and then initiation of sotalol for which she would be monitored in the hospital for any obvious pro arrhythmic events. This was discussed with the patient and her daughter. They were agreeable to this change in therapy. Thus at the present time the patient will continue her post cardiac catheterization care. She will continue to be monitored. She will remain without her flecainide for up approximately 24 hours. She will then initiate antiarrhythmic therapy with sotalol for which she will need to be monitored for a minimum of 4 doses in the hospital for any obvious pro arrhythmic event. 3. ICD She does have an ICD in place. It has been functioning appropriately. This note was generated using a voice recognition system and there may be incorrect words, spelling or punctuation that were not noted when reviewing the office note prior to saving.
[2020-06-13] MEDS: Ketorolac 30 MG/ML Syringe IV (22:51)
[2020-06-13] MEDS: Temazepam 15 MG Capsule 30 MG PO (22:51)
[2020-06-13] MEDS: Metoprolol Tartrate 100 MG Tablet PO (22:52)
[2020-06-13] MEDS: Triamterene 37.5MG/Hctz 25MG Capsule 1 CAP PO (22:52)
[2020-06-13] MEDS: 0.9% Saline Lock 10 ML Syringe IV (22:53)
[2020-06-14] VITALS (11 sets, daily range): BP systolic 108–146; BP diastolic 65–84; PULSE 64–83; RESP 15–18; TEMP 36.2–36.6; O2SAT 97–99
[2020-06-14] MEDS: LORazepam 0.5 MG Tablet PO ×2 (04:05→22:13)
[2020-06-14 06:41] LABS: Absolute Lymphocyte Count 2.28 X10^3/uL (0.83-4.51); Absolute Neutrophil Count 5.1 X10^3/uL (2.0-7.7); Basophil# 0.03 X10^3/uL; Basophil% 0.4 % (0-1); Eosinophils% 1.2 % (0-5); Hematocrit 42.5 % (37-47); Lymphocyte # 2.28 X10^3/ul (0.83-4.51); Lymphocyte % 27.8 % (19-41); Mean Corp Hgb Conc 32.9 g/dL (32-36); Mean Corpuscular Hgb 28.5 pg (27.0-32.0); Mean Corpuscular Volume 86.6 fL (81-99); Mean Platelet Vol. 10.7 fl (6.2-12.0); Monocyte# 0.69 X10^3/uL; Monocyte% 8.4 % (0-10); NRBC Flagged by Analyzer 0 % (0-5); Neutrophil # 5.07 X10^3/uL (2.7-7.7); Neutrophil % 61.8 % (47-70); Platelet Count 208 K/mm3 (150-450); RBC Distribution Width CV 14.6 % (11.6-14.6); RBC Distribution Width SD 46.6 fl (35.1-43.9); Red Blood Count 4.91 M/mm3 (4.2-5.4); White Blood Count 8.2 K/mm3 (4.4-11.0)
[2020-06-14] MEDS: Levothyroxine 75 MCG Tablet PO (06:48)
[2020-06-14] MEDS: tiZANidine HCl 2 MG Tablet PO ×3 (06:48→22:13)
[2020-06-14 08:21] LABS: ALB/GLOB Ratio 0.8 RATIO (0.9-2.4); AST(SGOT) 26 U/L (15-37); Alanine Aminotransfer ALT/SGPT 38 U/L (13-56); Albumin, Serum 3.1 g/dL (3.2-5.0); Alkaline Phosphatase 50 U/L (45-117); Anion Gap 5 (5-15); BUN 16 mg/dL (7-18); BUN/Creat Ratio 19.2 RATIO (10-20); Calcium,Total 8.8 mg/dL (8.5-10.1); Chloride 104 mmol/L (98-107); Creatinine, Serum 0.83 mg/dL (0.55-1.02); EST Glomerular Filtration Rate 75 mL/min (>60); Est Glom Filt Rate - Afr Amer 91 mL/min (>60); Estimated Creatinine Clearance 61.86 ml/min; Globulin 3.7 g/dL (2.2-4.2); Glucose 88 mg/dL (74-106); Potassium 4.2 mmol/L (3.5-5.1); Protein, Total 6.8 g/dL (6.4-8.2); Sodium Level 136 mmol/L (136-145)
[2020-06-14] MEDS: Acetaminophen 325 MG Tablet 650 MG PO ×3 (08:26→22:15)
[2020-06-14] MEDS: Potassium Chloride Oral Tablet 20 MEQ 40 MEQ PO ×2 (08:26→17:50)
[2020-06-14] MEDS: Aspirin 81 MG TAB.CHEW PO (08:26)
--- NOTE | 2020-06-14 09:02 | CRPHASE1_ITS ---
Patient Communication PHII Cardiac Rehab Discussed with Patient:: Yes Guide to Cardiac Rehab Given to Patient:: Yes Cardiac Rehab Facility Choice List Given to Patient:: Yes Choice Program [facility] CR PHII:: Communication Given to CR Choice Program Other:: Communication Given to CR Nurse Practitioner Adult:: Jose Cunningham Refer Phase II Cardiac Rehab:: Yes Sessions:: 36 sessions - 3 days/wk, 12 weeks Cardiac Rehabilitation Info Cardiac Rehabilitation Program Information: Cardiac Rehabilitation is important for patients like you who are recovering from a heart problem. Cardiac rehabilitation programs are recognized as integral to the continued care of the patient with coronary heart disease. The cardiac rehabilitation program is designed to optimize a patient's physical, psychological, and social functioning. Health healthcare project manager work in cardiac rehabilitation programs and assist you with getting the treatments you need to get stronger and healthier - like exercise, healthy eating habits, and medications. Cardiac rehabilitation has been show to help people with heart problems live longer and have better life enjoyment than people who do not go to cardiac rehabilitation. Please contact the Cardiac Rehabilitation Program at [facility] at in two weeks if you have not heard from them.
--- NOTE | 2020-06-14 09:03 | CRPH1.INST_ITS ---
General Education CAD and cardiac anatomy and function:: Patient communicates acknowledgment Explanation of diagnoses and procedures:: Patient communicates acknowledgment Sign/Symptoms of ME:: Patient communicates acknowledgment Antiplatelet therapy: Patient communicates acknowledgment Proper use of NTG-SL: Patient communicates acknowledgment Emergency procedures and activation of EMS: Patient communicates acknowledgment Compliance of all prescribed medications: Patient communicates acknowledgment Smoking Patient Nicotine/Smoking Risk Factors Are:: Never smoked Nicotine/Smoking Response Code:: Patient communicates acknowledgment Dyslipidemia Patient Dyslipidemia Risk Factors Are:: Total Cholesterol, Triglycerides, HDL, LDL Recommendations Include:: Lipid profile provided, Reviewed NCEP/ATP guidelines Dyslipidemia Response Code:: Patient communicates acknowledgment Overweight/Obesity Patient Overweight/Obesity Risk Factors Are:: Obesity - > or = 30 Recommendations Include:: Weight loss of 5-10%, Reduced calorie diet, Exercise 5-7 times/week Overweight/Obesity:: Patient communicates acknowledgment Hypertension Recommendations Include:: Maintain BP <130/85, DASH dietary guidelines, Decrease/maintain normal body weight Hypertension:: Patient communicates acknowledgment, Needs reinforcement Heart Disease Patient Heart Disease Risk Factors Are:: Previous cardiac event Recommendations Include:: Educated family members of their risk, Educated family members of importance of prevention of heart disease Heart Disease Response Code:: Patient communicates acknowledgment, Needs reinf orcement Sedentary Patient Sedentary Risk Factors Are:: Lack of regular exercise Recommendations Include:: Aerobic exercise 5-7 times/week for 20-30 minutes continuously, Benefits of regular exercise, Discussed home walking program, Monitored Outpatient Cardiac Rehab Sedentary Response Code:: Patient communicates acknowledgment Stress Recommendations Include:: Identification of stressors, and assessment of coping skills, Stress management techniques Stress Response Code:: Patient communicates acknowledgment
--- NOTE | 2020-06-14 10:00 | EKG12_ITS ---
Test Reason : AM EKG Blood Pressure : / mmHG Vent. Rate : 064 BPM Atrial Rate : 064 BPM P-R Int : 184 ms QRS Dur : 084 ms QT Int : 428 ms P-R-T Axes : 073 013 062 degrees QTc Int : 441 ms Normal sinus rhythm Low voltage QRS Nonspecific T wave abnormality Abnormal ECG When compared with ECG of 06-JUL-2014 10:46, Nonspecific T wave abnormality, worse in Anterior leads Confirmed by SHA DAVALOS, ANITA ([id number]), photography editor MIMI CHANG ([id number]) on 06/16/2020 8:29:32 AM Referred By: Chris Bang Confirmed By:REYNALDO DALTON MD
[2020-06-14] MEDS: Clopidogrel Bisulfate 75 MG Tablet PO (10:34)
[2020-06-14] MEDS: Amitriptyline 25 MG Tablet 75 MG PO (10:34)
[2020-06-14] MEDS: Pantoprazole Sodium 40 MG Tablet PO (10:34)
[2020-06-14] MEDS: Metoprolol Tartrate 100 MG Tablet PO ×2 (10:34→22:15)
--- NOTE | 2020-06-14 15:44 | PN.CARD_ITS ---
Subjectve: The patient states she feels much better today. She is not complaining of any obvious ongoing anxiety or right upper extremity related issues. Objective: Vital Signs Temp Pulse Resp BP Pulse Ox 97.8 F 73 18 111/65 99 06/14/20 10:30 06/14/20 10:34 06/14/20 10:30 06/14/20 10:30 06/14/20 10:30 Oxygen Delivery Method Room Air Weight: 283 lb 4.704 oz Body Mass Index (BMI) 50.3 Intake and Output for Last 24 Hours 06/12/20 06/13/20 06/14/20 23:59 23:59 23:59 Intake Total 1618.67 / 1618.67 720 / 720 Balance 1618.67 / 1618.67 720 / 720 General: Awake, Alert, Oriented x 3, Cooperative, No Acute Distress HEENT: Atraumatic, Normocephalic, PERRL, EOMI, Sclera Non Icteric Neck: Supple, Good ROM, No JVD Lungs: Clear to auscultation Cardiovascular: Regular Rhythm, Normal S1, Normal S2 Vascular: No Carotid Bruits, Normal Radial Pulses Abdomen: Bowel Sounds Present, Soft Extremities: No edema Neurological: No Focal Motor or Sensory Deficit Psych/Mental Status: Appropriate 06/14/20 06:34: WBC 8.2, RBC 4.91, Hgb 14.0, Hct 42.5, MCV 86.6, MCH 28.5, MCHC 32.9, Plt Count 208, MPV 10.7, Immature Gran % (Auto) 0.400, Neut % (Auto) 61.8, Lymph % (Auto) 27.8, Atlantic % (Auto) 8.4, Eos % (Auto) 1.2, Baso % (Auto) 0.4, Absolute Neuts (auto) 5.1, Nucleated RBC % 0 06/14/20 07:15: Sodium 136, Potassium 4.2, Chloride 104, Carbon Dioxide 27.0, Anion Gap 5, BUN 16, Creatinine 0.83, Est GFR (MDRD) Af Amer 91, Est GFR (MDRD) Non-Af 75, BUN/Creatinine Ratio 19.2, Glucose 88, Calcium 8.8, Total Bilirubin 0.70 Rhythm: Sinus rhythm Medical Necessity - Tobacco Use Smoking Status: Former smoker Assessment/Plan 1. CAD status post LAD PTCA/CURTIS The patient has developed CAD. She has now undergone LAD PTCA/CURTIS. She will need to continue medical management as deemed appropriate. 2. SVT/VT Patient has a combination of SVT and VT. She has been on medical management with beta-blockers and antiarrhythmic therapy with flecainide. She now has developed CAD which raises concern about continuation of a Type Ic agent such as flecainide. Her case was reviewed with Dr. Cobb of [facility] electrophysiology. At the present time consideration has been given to altering the patient's antiarrhythmic therapy from her flecainide to an agent such as a Type III agent being sotalol. This would require temporary interruption of her flecainide and then initiation of sotalol for which she would be monitored in the hospital for any obvious pro arrhythmic events. This was discussed with the patient and her daughter. They were agreeable to this change in therapy. Thus at the present time the patient will continue her post cardiac catheterization care. She will continue to be monitored. She will remain without her flecainide for up approximately 24 hours. She will then initiate antiarrhythmic therapy with sotalol for which she will need to be monitored for a minimum of 4 doses in the hospital for any obvious pro arrhythmic event. 3. ICD She does have an ICD in place. It has been functioning appropriately. Overall, at the present time, she will continue medical management with adjustme nt as noted above. She will continue with cardiac rhythm monitoring for any obvious adverse events with respect to changing her antiarrhythmic therapy which is based upon her new diagnosis of underlying CAD requiring PCI. This note was generated using a voice recognition system and there may be incorrect words, spelling or punctuation that were not noted when reviewing the office note prior to saving.
[2020-06-14] MEDS: Triamterene 37.5MG/Hctz 25MG Capsule 1 CAP PO (22:15)
[2020-06-14] MEDS: Temazepam 15 MG Capsule 30 MG PO (22:15)
[2020-06-14] MEDS: Atorvastatin Calcium 40 MG Tablet PO (22:19)
[2020-06-15] VITALS (10 sets, daily range): BP systolic 120–149; BP diastolic 71–92; PULSE 65–90; RESP 16; TEMP 36.3–36.9; O2SAT 95–100
[2020-06-15] MEDS: tiZANidine HCl 2 MG Tablet PO ×3 (05:31→21:07)
[2020-06-15] MEDS: Levothyroxine 75 MCG Tablet PO (05:31)
[2020-06-15 06:53] LABS: Anion Gap 5 (5-15); BUN 17 mg/dL (7-18); BUN/Creat Ratio 22.4 RATIO (10-20); Calcium,Total 9.1 mg/dL (8.5-10.1); Chloride 106 mmol/L (98-107); Creatinine, Serum 0.76 mg/dL (0.55-1.02); EST Glomerular Filtration Rate 83 mL/min (>60); Est Glom Filt Rate - Afr Amer 101 mL/min (>60); Estimated Creatinine Clearance 67.56 ml/min; Glucose 91 mg/dL (74-106); Potassium 4.3 mmol/L (3.5-5.1); Sodium Level 131 mmol/L (136-145)
[2020-06-15] MEDS: LORazepam 0.5 MG Tablet PO ×2 (09:15→22:40)
[2020-06-15] MEDS: Acetaminophen 325 MG Tablet 650 MG PO ×2 (09:15→22:39)
[2020-06-15] MEDS: 0.9% Saline Lock 10 ML Syringe IV (09:16)
[2020-06-15] MEDS: Potassium Chloride Oral Tablet 20 MEQ 40 MEQ PO ×2 (09:16→16:53)
[2020-06-15] MEDS: Aspirin 81 MG TAB.CHEW PO (09:17)
--- NOTE | 2020-06-15 10:00 | EKG12_ITS ---
Test Reason : AM EKG Blood Pressure : / mmHG Vent. Rate : 072 BPM Atrial Rate : 072 BPM P-R Int : 160 ms QRS Dur : 082 ms QT Int : 390 ms P-R-T Axes : 068 013 070 degrees QTc Int : 427 ms Normal sinus rhythm Low voltage QRS Borderline ECG When compared with ECG of 14-JUN-2020 05:11, MANUAL COMPARISON REQUIRED, DATA IS UNCONFIRMED Confirmed by SHA DAVALOS, ANITA ([id number]), offline editor MIMI CHANG ([id number]) on 06/16/2020 8:26:56 AM Referred By: Chris Bang Confirmed By:REYNALDO DALTON MD
[2020-06-15] MEDS: Clopidogrel Bisulfate 75 MG Tablet PO (10:18)
[2020-06-15] MEDS: Pantoprazole Sodium 40 MG Tablet PO (10:18)
[2020-06-15] MEDS: Sotalol Hydrochloride 80 MG Tablet 120 MG PO ×2 (10:18→21:07)
--- NOTE | 2020-06-15 11:53 | CASEMGMT ---
ROCIO NGUYEN assessment: Face to Face with patient for initial transition planning/care coordination assessment. ROCIO NGUYEN introduced self and role at [facility], pt voices understanding and consents to assessment. Pt is sitting up in chair in no distress. Pt is A/Ox4 and answers all questions appropriately. Care providers, pharmacy, and demographics verified. Presentation: OP cath Admitting dx: CP, abn stress PCP: Olegario Specialists: Moodispaw, cardio; Guillaume, ortho Preferred Pharmacy: [facility] Insurance: [facility] Prescription Benefit: [facility] Living Will/HPOA: Pt has LW/HPOA and is aware that they are on file at [facility]. Pt's daughter, Antonieta Booth, is HPOA. LNOK: Antonieta Booth, daughter/HPOA Living Arrangements: Pt states lives alone in 1 story apt with no steps in and states no concerns at home. Pt states is independent with ADL's. Transportation: Pt states drives self and states no transportation concerns. DME/HHC: Pt states no current DME or need for any further. Pt states no hx of HHC or SNF in the past. Pt states no concerns with going home at time of discharge. Pt is on disability. Pt states does not smoke cigarettes but does drink ETOH occasionally. Pt states no further concerns/needs. CM to follow for any further d/c planning/needs. Advised pt to ask for CM if any further questions/concerns/needs arise, voices understanding. Pt Goal: Home Plan[place] ROCIO NGUYEN
--- NOTE | 2020-06-15 12:18 | EKG12_ITS ---
Test Reason : TIMED W/MEDICATION Blood Pressure : / mmHG Vent. Rate : 074 BPM Atrial Rate : 074 BPM P-R Int : 152 ms QRS Dur : 076 ms QT Int : 398 ms P-R-T Axes : 077 010 070 degrees QTc Int : 441 ms Normal sinus rhythm Low voltage QRS Nonspecific T wave abnormality Abnormal ECG When compared with ECG of 15-JUN-2020 12:16, MANUAL COMPARISON REQUIRED, DATA IS UNCONFIRMED Confirmed by SHA DAVALOS, ANITA ([id number]), electronic news gathering editor MIMI CHANG ([id number]) on 06/19/2020 10:06:49 A M Referred By: Chris Bang Confirmed By:REYNALDO DALTON MD
[2020-06-15] MEDS: Amitriptyline 25 MG Tablet 75 MG PO (12:57)
--- NOTE | 2020-06-15 14:40 | PN.CARD_ITS ---
Subjectve: The patient is awake and alert. She states she has rested well. She has no discomfort with her right upper extremity. She has had no other chest di scomfort, respiratory related issues, or palpitations. Objective: Vital Signs Temp Pulse Resp BP Pulse Ox 98.4 F 82 16 120/86 H 97 06/15/20 10:15 06/15/20 10:15 06/15/20 10:15 06/15/20 10:15 06/15/20 10:15 Oxygen Delivery Method Room Air Weight: 283 lb 4.704 oz Body Mass Index (BMI) 50.3 Intake and Output for Last 24 Hours 06/13/20 06/14/20 06/15/20 23:59 23:59 23:59 Intake Total 1618.67 / 1618.67 1400 / 1520 120 / 120 Balance 1618.67 / 1618.67 1400 / 1520 120 / 120 General: Awake, Alert, Oriented x 3, Cooperative, No Acute Distress, Obese HEENT: Atraumatic, Normocephalic, PERRL, EOMI, Sclera Non Icteric Neck: Supple, Good ROM, No JVD Lungs: Clear to auscultation Cardiovascular: Regular Rhythm, Normal S1, Normal S2 Vascular: No Carotid Bruits, Normal Radial Pulses Abdomen: Bowel Sounds Present, Soft Extremities: No edema Neurological: No Focal Motor or Sensory Deficit Psych/Mental Status: Appropriate 06/15/20 06:12: Sodium 131 L, Potassium 4.3, Chloride 106, Carbon Dioxide 20.0 L , Anion Gap 5, BUN 17, Creatinine 0.76, Est GFR (MDRD) Af Amer 101, Est GFR (MDRD) Non-Af 83, BUN/Creatinine Ratio 22.4 H, Glucose 91, Calcium 9.1 Rhythm: Sinus rhythm EKG: Sinus rhythm; low voltage QRS Medical Necessity - Tobacco Use Smoking Status: Former smoker Assessment/Plan 1. CAD status post LAD PTCA/CURTIS The patient has developed CAD. She has now undergone LAD PTCA/CURTIS. She will need to continue medical management as deemed appropriate. 2. SVT/VT Patient has a combination of SVT and VT. She has been on medical management with beta-blockers and antiarrhythmic therapy with flecainide. She now has developed CAD which raises concern about continuation of a Type Ic agent such as flecainide. The patient is now initiating antiarrhythmic therapy with sotalol/Betapace. She will continue to be monitored with cardiac telemetry monitoring for a minimum of 4 doses. After that, if she is symptomatically and hemodynamically stable and no adverse events/pro arrhythmic events, then hopefully she can be released home for continued outpatient follow-up. 3. ICD She does have an ICD in place. It has been functioning appropriately. This note was generated using a voice recognition system and there may be incorrect words, spelling or punctuation that were not noted when reviewing the office note prior to saving.
[2020-06-15] MEDS: Triamterene 37.5MG/Hctz 25MG Capsule 1 CAP PO (21:07)
[2020-06-15] MEDS: Atorvastatin Calcium 40 MG Tablet PO (21:07)
[2020-06-15] MEDS: Temazepam 15 MG Capsule 30 MG PO (22:39)
--- NOTE | 2020-06-15 23:07 | EKG12_ITS ---
Test Reason : 2 HOURS AFTER MED Blood Pressure : / mmHG Vent. Rate : 083 BPM Atrial Rate : 083 BPM P-R Int : 146 ms QRS Dur : 076 ms QT Int : 376 ms P-R-T Axes : 068 010 063 degrees QTc Int : 441 ms Normal sinus rhythm Nonspecific T wave abnormality Abnormal ECG Confirmed by IWONA DAVALOS, CHRIS ([id number]), food editor MIMI CHANG ([id number]) on 06/21/2020 9:03:55 AM Referred By: Chris Bustillo Confirmed By:CHRIS BUSTILLO MD
[2020-06-16] VITALS (8 sets, daily range): BP systolic 112–141; BP diastolic 76–87; PULSE 67–89; RESP 12–16; TEMP 36.2–36.6; O2SAT 96–99
[2020-06-16] MEDS: Levothyroxine 75 MCG Tablet PO (05:47)
[2020-06-16] MEDS: tiZANidine HCl 2 MG Tablet PO ×3 (05:47→21:30)
[2020-06-16] MEDS: Acetaminophen 325 MG Tablet 650 MG PO ×3 (05:52→21:27)
[2020-06-16] MEDS: Potassium Chloride Oral Tablet 20 MEQ 40 MEQ PO ×2 (08:27→17:46)
[2020-06-16] MEDS: Aspirin 81 MG TAB.CHEW PO (08:27)
--- NOTE | 2020-06-16 08:30 | PCM.PN.CARD ---
Subjectve: The patient is awake and alert. She states overall she is feeling much better. She states she has noticed since altering her medications that she has not become as short of breath or dyspneic when she has been up and ambulating and she notices her lower extremities feel warmer. Objective: Vital Signs Temp Pulse Resp BP Pulse Ox 97.2 F L 78 16 123/76 H 99 06/16/20 04:15 06/16/20 07:49 06/16/20 04:15 06/16/20 04:15 06/16/20 04:15 Oxygen Delivery Method Room Air Weight: 277 lb 1.937 oz Body Mass Index (BMI) 50.3 Intake and Output for Last 24 Hours 06/14/20 06/15/20 06/16/20 23:59 23:59 23:59 Intake Total 1400 / 1520 1340 / 1460 360 / 360 Balance 1400 / 1520 1340 / 1460 360 / 360 General: Awake, Alert, Oriented x 3, Cooperative, No Acute Distress, Obese HEENT: Atraumatic, Normocephalic, PERRL, EOMI, Sclera Non Icteric Neck: Supple, Good ROM, No JVD Lungs: Clear to auscultation Cardiovascular: Regular Rhythm, Normal S1, Normal S2 Vascular: No Carotid Bruits, Normal Radial Pulses Abdomen: Bowel Sounds Present, Soft Extremities: No edema Neurological: No Focal Motor or Sensory Deficit Psych/Mental Status: Appropriate Rhythm: Sinus rhythm EKG: Sinus rhythm; low voltage QRS; nonspecific T wave change; no acute ECG changes Medical Necessity - Tobacco Use Smoking Status: Former smoker Assessment/Plan 1. CAD status post LAD PTCA/CURTIS The patient has developed CAD. She has now undergone LAD PTCA/CURTIS. She will need to continue medical management as deemed appropriate. 2. SVT/VT The patient has a combination of SVT and VT. She has been on medical management with beta-blockers and antiarrhythmic therapy with flecainide. She now has developed CAD which raises concern about continuation of a Type Ic agent such as flecainide. The patient is now initiating antiarrhythmic therapy with sotalol/Betapace. Thus far she appears to be tolerating the medication well without any obvious adverse events including pro arrhythmic events or obvious adverse changes on her baseline electrocardiogram. She will continue to be monitored with cardiac telemetry monitoring for a minimum of 4 doses. After that, if she is symptomatically and hemodynamically stable and no adverse events/pro arrhythmic events, then hopefully she can be released home for continued outpatient follow-up. 3. ICD She does have an ICD in place. It has been functioning appropriately. This note was generated using a voice recognition system and there may be incorrect words, spelling or punctuation that were not noted when reviewing the office note prior to saving.
[2020-06-16] MEDS: LORazepam 0.5 MG Tablet PO ×2 (08:34→14:18)
--- NOTE | 2020-06-16 10:00 | EKG12_ITS ---
Test Reason : 2 HRS POST SOTALOL Blood Pressure : / mmHG Vent. Rate : 072 BPM Atrial Rate : 072 BPM P-R Int : 160 ms QRS Dur : 080 ms QT Int : 426 ms P-R-T Axes : 072 010 059 degrees QTc Int : 466 ms Normal sinus rhythm Low voltage QRS Borderline ECG Confirmed by IWONA DAVALOS, CHRIS ([id number]), editor farm journal MIMI CHANG ([id number]) on 06/21/2020 9:02:13 AM Referred By: Chris Bustillo Confirmed By:CHRIS BUSTILLO MD
[2020-06-16] MEDS: Clopidogrel Bisulfate 75 MG Tablet PO (10:12)
[2020-06-16] MEDS: Pantoprazole Sodium 40 MG Tablet PO (10:12)
[2020-06-16] MEDS: 0.9% Saline Lock 10 ML Syringe IV (10:12)
[2020-06-16] MEDS: Amitriptyline 25 MG Tablet 75 MG PO (10:12)
[2020-06-16] MEDS: Sotalol Hydrochloride 80 MG Tablet 120 MG PO ×2 (10:15→21:29)
--- NOTE | 2020-06-16 12:51 | PCM.DC ---
<Chris Bang - Last Filed: 06/16/20 14:12> - Discharge Diagnoses Current Active Problems: Current Active and Chronic Problems (Last Updated 06/13/20 @ 11:56 by Sade Bruno) Abnormal stress test (Acute) ICD (implantable cardioverter-defibrillator) in place (Chronic) Cardiomyopathy, dilated (Chronic) Syncope and collapse (Chronic) SVT (supraventricular tachycardia) (Chronic) Ventricular tachycardia (Chronic) Reason(s) for Visit for Discharge Instructions: Abnormal stress test. Cardiac catheterization. Cardiac intervention. Antiarrhythmic medication adjustment/initiation You will use the following diet at home:: Cardiac Your food should be the consistency of: Regular Discharge Activity: May Shower, May Take a Tub Bath - May not take a tub bath until 06-21-2020 May resume sexual activity in: 2 weeks Weight Bearing Status: - - Avoid heavy exertional activity especially with the right upper extremity until 06-21-2020 Call your doctor if your incision/area has: Sudden Increased Bleeding, Increased Pain/ Swelling Call your doctor if you observe: Fever of 101 or Higher, Shortness of breath, Fainting spells, Chest pain, Increased palpitations (irregular heartbeat) Cleanse incision/area with: Soap & Water Additional Instructions: Prescription for the patient's medication: Sotalol/Betapace: Forwarded to the [facility]'s pharmacy: [facility] [place] Allergies/Adverse Reactions: Allergies adhesive Allergy (Verified 05/11/20 10:23) Rash BLISTERS codeine Allergy (Verified 05/11/20 10:23) Other SEVERE HEADACHE morphine Allergy (Verified 05/11/20 10:23) Itching tramadol Adverse Reaction (Verified 05/11/20 10:23) Unknown Medications to take at Discharge aspirin 81 mg tablet,delayed release 81 mg PO QDAY 08/10/17 cholecalciferol (vitamin D3) 1,250 mcg (50,000 unit) capsule 50,000 unit PO QWEEK 08/10/17 levothyroxine 75 mcg tablet 75 mcg PO QDAY 08/10/17 tizanidine 2 mg tablet 2 mg PO TID 08/10/17 Handicap Placard #1 ea 02/26/18 amitriptyline 50 mg tablet 75 mg PO QDAY tab 09/23/18 omeprazole 20 mg capsule,delayed release 40 mg PO DAILY cap 09/23/18 promethazine 12.5 mg tablet 12.5 mg PO Q6H PRN 09/23/18 etodolac 500 mg tablet 500 mg PO BID PRN #60 tab 11/30/18 lorazepam 0.5 mg tablet 0.5 mg PO TID PRN tab 04/17/20 potassium chloride 20 mEq tablet,extended release(part/cryst) 40 meq PO BID 30 Days #120 tab 05/11/20 triamterene 37.5 mg-hydrochlorothiazide 25 mg tablet 1 tab PO DAILY #30 tab 05/11/20 clopidogrel 75 mg tablet 75 mg PO QDAY #30 tablet 05/25/20 sotalol 120 mg tablet 120 mg PO BID #60 tablet 06/16/20 Orders to be completed after discharge: Phase II, Outpatient Cardiac Rehab Location: None Selected Primary Care Physician: Wellington Melvin DO [Primary Care Provider] - Test Results: Test results from this visit will be discussed in further detail at your follow-up appointment, if applicable. Please Follow Up With: [facility] - for outpatient ECG When: 06/27/2020 @ 10:15 AM Please Follow Up With: [facility] - for outpatient office visit When: 07/14/2020 @ 09:30 AM with Esteban Brown CNP Proposed Discharge Date: 06/17/20 <Jose Cunningham - Last Filed: 06/17/20 13:43> - Discharge Diagnoses Current Active Problems: Current Active and Chronic Problems (Last Updated 06/13/20 @ 11:56 by Sade Bruno) Abnormal stress test (Acute) ICD (implantable cardioverter-defibrillator) in place (Chronic) Cardiomyopathy, dilated (Chronic) Syncope and collapse (Chronic) SVT (supraventricular tachycardia) (Chronic) Ventricular tachycardia (Chronic) Test Results: Test results from this visit will be discussed in further detail at your follow-up appointment, if applicable.
--- NOTE | 2020-06-16 13:00 | PCM.DC.SUM ---
Discharge Date and Diagnosis - Problem List Patient Problems: Active and Suspected Problems (Last Updated 06/13/20 @ 11:56 by Sade Bruno) Abnormal stress test (Acute) Date of Admission: 06/13/20 Date of Discharge: 06/17/20 - Primary Discharge Diagnosis Acute Problems: Active Problems (Last Updated 06/13/20 @ 11:56 by Sade Bruno) Abnormal stress test (Acute) Suspected Problems: CAD - Secondary Discharge Diagnosis Chronic Problems: Chronic Problems (Last Updated 06/13/20 @ 11:56 by Sade Bruno) Presence of stent in coronary artery (Chronic ~06/13/20) Successful CURTIS to the mLAD (Orsiro 3.5 x 15mm stent) per cardiac cath 06/13/20 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 Cardiac catheterization was performed. The patient was found to have angiographically significant appearing CAD of the LAD distribution. She underwent LAD PTCA/CURTIS. Based upon her diagnosis of CAD consideration was given to altering her antiarrhythmic therapy from flecainide to an alternative agent such as sotalol/Betapace. Thus, status post discussion with [facility] electrophysiology, it was elected to have the patient remain in the hospital during her antiarrhythmic discontinuation and initiation. During this time she remained on a cardiac rhythm monitor. She remained in sinus rhythm. Her ECG remained sinus rhythm with no acute ECG changes. She stated overall she was actually feeling better since her cardiovascular evaluation and care with respect to her breathing as well as with respect to her lower extremity digits which previously felt cold and L felt warm. The patient was evaluated on?? by Dr. Cunningham. According to Dr. Cunningham's report patient remains symptomatically and hemodynamically stable. There was no report of any obvious cardiac dysrhythmias or concerns on her baseline electrocardiogram. Thus he deemed the patient stable to be released home for continued outpatient cardiovascular follow-up. Her cardiac catheterization procedure / PCI is as noted below. CONCLUSIONS [place] Multivessel CAD RECOMMENDATIONS Risk factor modification Medical therapy Referred for immediate PCI DESCRIPTION OF PROCEDURE The patient arrived to the procedure lab. The risks and benefits of the procedure as well as a full description of our services here and current unavailability of surgical backup were fully explained to the patient and/or their significant other prior to the catheterization. The Timeout was completed, verifying the correct patient and procedure. The patient's procedural site was prepped and draped in the usual fashion. Local anesthetic was given subcutaneously to right radial region with Lidocaine 2%. Using a modified Seldinger technique, arterial access was obtained via the right radial artery, a 6Fr sheath was inserted. Right Coronary Artery selective angiography was then performed in multiple views using a 5 Fr. 4.0 Ash[place] catheter. Left Coronary Artery selective angiography was performed in multiple views using a 5 Fr. 4.0 Ashford catheter.The arterial sheath was pulled and a TR Band was applied for hemostasis CORONARY ANGIOGRAPHY DOMINANCE: Right Dominant LEFT HEART ASSESSMENT Left Ventricular Ejection Fraction: Not assessed LEFT MAIN: Angiographically normal LEFT ANTERIOR DESCENDING ARTERY: MID LAD: hazy: 85 % Stenosis with no angiographically significant appearing change s/p NTG IC (200 mcg) CIRCUMFLEX ARTERY: Mild luminal irregularities RIGHT CORONARY ARTERY: Mild luminal irregularities CONCLUSIONS Successful CURTIS to the mLAD (Orsiro 3.5 x 15mm stent) [] Patient Problems: Active and Suspected Problems (Last Updated 06/13/20 @ 11:56 by Sade Bruno) Abnormal stress test (Acute) Subjective: Please see 06-17-2020 cardiovascular progress note by Dr. Cunningham. Objective: Please see 06-17-2020 cardiovascular progress note by Dr. Cunningham for physical examination findings. - Physical Exam Vitals/I&O's: Vital Signs Temp Pulse Resp BP Pulse Ox 97.5 F L 85 12 112/77 97 06/16/20 09:59 06/16/20 09:59 06/16/20 09:59 06/16/20 09:59 06/16/20 09:59 Oxygen Delivery Method Room Air Weight: 277 lb 1.937 oz Body Mass Index (BMI) 50.3 Intake and Output for Last 24 Hours 06/14/20 06/15/20 06/16/20 23:59 23:59 23:59 Intake Total 1400 / 1520 1340 / 1460 1100 / 1100 Balance 1400 / 1520 1340 / 1460 1100 / 1100 Comment: Right radial artery area: Mild ecchymoses: No hematoma: Pulse 2+/4+ Current Medications Acetaminophen (Acetaminophen 325 Mg Tablet) 650 mg PO Q6H PRN PRN PRN Reason: Pain Score 1-10/Temp > 100.7 F Last Admin: 06/16/20 05:52 Dose: 650 mg Documented by: Amitriptyline HCl (Amitriptyline 25 Mg Tablet) 75 mg PO DAILY [facility] Last Admin: 06/16/20 10:12 Dose: 75 mg Documented by: Aspirin (Aspirin 81 Mg Tab.Chew) 81 mg PO DAILY@0800 [facility] Last Admin: 06/16/20 08:27 Dose: 81 mg Documented by: Atorvastatin Calcium (Atorvastatin Calcium 40 Mg Tablet) 40 mg PO QHS [facility] Last Admin: 06/15/20 21:07 Dose: 40 mg Documented by: Atropine Sulfate (Atropine Sulfate 1 Mg/10 Ml Syringe) 0.5 mg IV UD PRN PRN Reason: HR <50 bpm Clopidogrel Bisulfate (Clopidogrel Bisulfate 75 Mg Tablet) 75 mg PO DAILY [facility] Last Admin: 06/16/20 10:12 Dose: 75 mg Documented by: Ergocalciferol (Ergocalciferol 50,000 Unit Capsule) 50,000 unit PO Meyers@1000 [facility] Heparin Sodium (Beef Lung) (Heparin Lock 500 Unit/5 Ml In 10 Ml Syringe) 500 unit IV UD PRN PRN Reason: HEPARIN FLUSH Levothyroxine Sodium (Levothyroxine 75 Mcg Tablet) 75 mcg PO DAILY@0600 [facility] Last Admin: 06/16/20 05:47 Dose: 75 mcg Documented by: Lorazepam (Lorazepam 0.5 Mg Tablet) 0.5 mg PO TID PRN PRN Reason: ANXIETY Last Admin: 06/16/20 08:34 Dose: 0.5 mg Documented by: Nitroglycerin (Nitroglycerin (Inpatient Use) 0.4 Mg Tab.Subl) 0.4 mg SL Q5M PRN PRN Reason: CARDIAC/CHEST PAIN Pantoprazole Sodium (Pantoprazole Sodium 40 Mg Tablet) 40 mg PO DAILY [facility] Last Admin: 06/16/20 10:12 Dose: 40 mg Documented by: Potassium Chloride (Potassium Chloride Oral Tablet 20 Meq) 40 meq PO BIDCM [facility] Last Admin: 06/16/20 08:27 Dose: 40 meq Documented by: Promethazine HCl (Promethazine 25 Mg Tablet) 12.5 mg PO Q6H PRN PRN PRN Reason: NAUSEA Sodium Chloride (0.9% Normal Saline 500 Ml Iv.Soln.) 500 ml IV BOLUS PRN PRN Reason: VASO-VAGAL PROTOCOL Sodium Chloride (0.9% Saline Lock 10 Ml Syringe) 10 - 40 ml IV UD PRN PRN Reason: SALINE FLUSH Last Admin: 06/16/20 10:12 Dose: 10 ml Documented by: Sotalol HCl (Sotalol Hydrochloride 80 Mg Tablet) 120 mg PO BID [facility] Last Admin: 06/16/20 10:15 Dose: 120 mg Documented by: Temazepam (Temazepam 15 Mg Capsule) 30 mg PO QHS PRN PRN PRN Reason: INSOMNIA Last Admin: 06/15/20 22:39 Dose: 30 mg Documented by: Tizanidine HCl (Tizanidine Hcl 2 Mg Tablet) 2 mg PO TID [facility] Last Admin: 06/16/20 05:47 Dose: 2 mg Documented by: Triamterene/Hydrochlorothiazide (Triamterene 37.5mg/Hctz 25mg Capsule) 1 cap PO DAILY@2200 [facility] Last Admin: 06/15/20 21:07 Dose: 1 cap Documented by: Discharge Diet: Low fat/ Low Cholesterol Discharge Activity: May Shower, May Take a Tub Bath - May not take a tub bath until 06-21-2020 May resume sexual activity in: 2 weeks Weight Bearing Status: - - Avoid heavy exertional activity especially with the right upper extremity until 06-21-2020 Call your doctor if your incision/area has: Sudden Increased Bleeding, Increased Pain/ Swelling Call your doctor if you observe: Fever of 101 or Higher, Shortness of breath, Fainting spells, Chest pain, Increased palpitations (irregular heartbeat) Cleanse incision/area with: Soap & Water Home Medications: Medications to take at Discharge aspirin 81 mg tablet,delayed release 81 mg PO QDAY 08/10/17 cholecalciferol (vitamin D3) 1,250 mcg (50,000 unit) capsule 50,000 unit PO QWEEK 08/10/17 levothyroxine 75 mcg tablet 75 mcg PO QDAY 08/10/17 tizanidine 2 mg tablet 2 mg PO TID 08/10/17 Handicap Placard #1 ea 02/26/18 amitriptyline 50 mg tablet 75 mg PO QDAY tab 09/23/18 omeprazole 20 mg capsule,delayed release 40 mg PO DAILY cap 09/23/18 promethazine 12.5 mg tablet 12.5 mg PO Q6H PRN 09/23/18 etodolac 500 mg tablet 500 mg PO BID PRN #60 tab 11/30/18 lorazepam 0.5 mg tablet 0.5 mg PO TID PRN tab 04/17/20 potassium chloride 20 mEq tablet,extended release(part/cryst) 40 meq PO BID 30 Days #120 tab 05/11/20 triamterene 37.5 mg-hydrochlorothiazide 25 mg tablet 1 tab PO DAILY #30 tab 05/11/20 clopidogrel 75 mg tablet 75 mg PO QDAY #30 tablet 05/25/20 Sotalol HCl [Sotalol] 120 mg PO BID 06/17/20 Other Amb Orders: Phase II, Outpatient Cardiac Rehab Location: None Selected Primary Care Physician: Wellington Melvin DO [Primary Care Provider] - Please Follow Up With: [facility] - for outpatient ECG When: 06/27/2020 @ 10:15 AM Please Follow Up With: [facility] - for outpatient office visit When: 07/14/2020 @ 09:30 AM with Esteban Brown CNP Additional Instructions: Prescription for sotalol/Betapace to be forwarded to the patient's pharmacy: [facility] [place] Disposition: Home Minutes spent on discharge:: 45 Patient Condition:: Stable Medical Necessity - Tobacco Use Smoking Status: Former smoker Meaningful Use Info Meaningful Use Diagnoses (Choose all that apply): None applicable
--- NOTE | 2020-06-16 18:10 | NURSING ---
This RN reviewed and agree with [facility] documentation.
[2020-06-16] MEDS: Temazepam 15 MG Capsule 30 MG PO (21:28)
[2020-06-16] MEDS: Triamterene 37.5MG/Hctz 25MG Capsule 1 CAP PO (21:29)
[2020-06-16] MEDS: Atorvastatin Calcium 40 MG Tablet PO (21:30)
--- NOTE | 2020-06-16 23:35 | EKG12_ITS ---
Test Reason : POST MEDICATION Blood Pressure : / mmHG Vent. Rate : 070 BPM Atrial Rate : 070 BPM P-R Int : 152 ms QRS Dur : 074 ms QT Int : 418 ms P-R-T Axes : 065 -01 055 degrees QTc Int : 451 ms Normal sinus rhythm Nonspecific ST and T wave abnormality Abnormal ECG Confirmed by IWONA DAVALOS, CHRIS ([id number]), editor managing newspaper MIMI CHANG ([id number]) on 06/21/2020 9:04:08 AM Referred By: Chris Bustillo Confirmed By:CHRIS BUSTILLO MD
[2020-06-17] MEDS: LORazepam 0.5 MG Tablet PO ×2 (00:04→09:08)
[2020-06-17 02:59] VITALS: PULSE 76
[2020-06-17 03:34] VITALS: BP 110/78; PULSE 73; RESP 14; TEMP 36.7; O2SAT 97
[2020-06-17] MEDS: tiZANidine HCl 2 MG Tablet PO ×2 (05:51→14:44)
[2020-06-17] MEDS: Levothyroxine 75 MCG Tablet PO (05:51)
[2020-06-17 07:15] VITALS: PULSE 95
[2020-06-17 09:04] VITALS: BP 143/92; PULSE 99; RESP 15; TEMP 36.6; O2SAT 99
[2020-06-17] MEDS: Acetaminophen 325 MG Tablet 650 MG PO (09:08)
[2020-06-17] MEDS: Aspirin 81 MG TAB.CHEW PO (09:10)
[2020-06-17] MEDS: Potassium Chloride Oral Tablet 20 MEQ 40 MEQ PO (09:10)
[2020-06-17] MEDS: Sotalol Hydrochloride 80 MG Tablet 120 MG PO (09:11)
[2020-06-17] MEDS: Clopidogrel Bisulfate 75 MG Tablet PO (09:11)
[2020-06-17] MEDS: Amitriptyline 25 MG Tablet 75 MG PO (09:13)
[2020-06-17] MEDS: Pantoprazole Sodium 40 MG Tablet PO (09:14)
--- NOTE | 2020-06-17 13:44 | PCM.PN.CARD ---
Subjectve: Patient is doing well. Denies any cardiac complaints. Objective: Vital Signs Temp Pulse Resp BP Pulse Ox 97.8 F 99 15 143/92 H 99 06/17/20 09:04 06/17/20 09:04 06/17/20 09:04 06/17/20 09:04 06/17/20 09:04 Oxygen Delivery Method Room Air Weight: 278 lb 0.046 oz Body Mass Index (BMI) 50.3 Intake and Output for Last 24 Hours 06/15/20 06/16/20 06/17/20 23:59 23:59 23:59 Intake Total 1340 / 1460 1340 / 1640 600 / 600 Balance 1340 / 1460 1340 / 1640 600 / 600 General: Awake, Alert, Oriented x 3 HEENT: Atraumatic Neck: Supple Cardiovascular: Regular Rhythm Rhythm: EKG: ECHO: Stress Test: Cardiac Cath: PCI: CT Surgery: Holter monitor: EPS: PPM: CXR: Chest CT Scan: Medical Necessity - Tobacco Use Smoking Status: Former smoker Assessment/Plan 1. Coronary artery disease: Continue dual antiplatelet therapy. 2. SVT and VT: Switched to sotalol from flecainide. EKG from today reviewed. Patient continues to remain in sinus rhythm. No significant runs of SVT or VT. Okay to discharge home. Follow-up with Dr. Bang as an outpatient.
[2020-06-17 14:35] VITALS: BP 127/83; PULSE 65; RESP 15; TEMP 36.8; O2SAT 95
== END 2020-06-17 15:10 | disposition home or self-care (01) | DRG 175 ==
LOC: CLSP 06-15 08:25 → PCU 06-15 08:25
PROVIDERS: Nurse Practitioner Family; Specialist; Admitting Provider Internal Medicine Cardiovascular Disease; PCP Student in an Organized Health Care Education/Training Program; Referring Provider Internal Medicine Cardiovascular Disease; Visit Provider Internal Medicine Cardiovascular Disease
DX: I25.110 Atherosclerotic heart disease of native coronary artery with unstable angina pectoris (principal); I42.0 Dilated cardiomyopathy; I47.1 Supraventricular tachycardia; K21.9 Gastro-esophageal reflux disease without esophagitis; G47.33 Obstructive sleep apnea (adult) (pediatric); E03.9 Hypothyroidism, unspecified; R94.39 Abnormal result of other cardiovascular function study; E66.9 Obesity, unspecified; F43.11 Post-traumatic stress disorder, acute; Z95.810 Presence of automatic (implantable) cardiac defibrillator; Z68.43 Body mass index [BMI] 50.0-59.9, adult; Z79.899 Other long term (current) drug therapy; Z79.82 Long term (current) use of aspirin; Z79.02 Long term (current) use of antithrombotics/antiplatelets; Z87.891 Personal history of nicotine dependence
CPT/HCPCS: 36415; 71046; 80048; 80053; 85025; 85610; 85730; 92928; 93005; 93454; 99152; 99153; C1725; J7030; J7040; Q9967; A4216; C1769; C1874; C1887; C1894; C9600

== ENCOUNTER → 2020-06-30 10:44 | Outpatient (CLI) | payer MEDICAID, SELFPAY ==
[2020-06-13 11:29] VITALS: BMI 50.3
--- NOTE | 2020-06-30 10:46 | UEAS_ITS ---
Reason For Study: Tingling and pain in hand, s/p heart cath 06/13/20 RIGHT Radial artery, prox, 0.22 x 0.22 cm, 45.9 cm/sec. Radial artery, mid, 0.12 cm, 47.6 cm/sec. Radial artery, distal, 0.25 x 0.25 cm, 49.7 cm/sec. Ulnar artery, distal, 0.15 x 0.13 cm, 54.6 cm/sec. Radial vein and Cephalic vein are compressible. No Pseudoaneurysm or acute occlusion noted. Prelim to Steff CHAN.
== END ==
PROVIDERS: PCP Student in an Organized Health Care Education/Training Program; Visit Provider Internal Medicine Cardiovascular Disease
DX: R09.89 Other specified symptoms and signs involving the circulatory and respiratory systems (principal); S55.101A Unspecified injury of radial artery at forearm level, right arm, initial encounter
CPT/HCPCS: 93923

== ENCOUNTER → 2020-07-04 09:23 | Outpatient (CLI) | payer MEDICAID, SELFPAY ==
[2020-06-13 11:29] VITALS: BMI 50.3
--- NOTE | 2020-07-04 09:36 | CR.HP_ITS ---
CR - History & Physical - General Arrival date:: 07/04/20 Arrival time:: 09:30 Date of Referral:: 06/13/20 Date of CR Evaluation:: 07/04/20 Referring Physician: DR. MAYUR BUSTILLO Primary Diagnosis: PCI W/CORONARY STENTING - History of Present Cardiac Event Onset Date: Enter Onset Date of cardiac illnesses in Comment field below PTCA or coronary stenting:: Yes - 06/13/2020 Type of Symptoms:: CHEST PAINS Interventions with present event:: HEART CATH, PCI W/CORONARY STENTING Were there any complications?: NONE - Sleep Disorder Evaluation Hx of Sleep Apnea: Yes Do you snore loudly (louder than talking or can be heard through closed doors)?: Yes - HAS HOME CPAP Do you often feel tired/ fatigued/ sleepy during daytime?: Yes Has anyone observed you stop breathing during sleep?: No History of Hypertension (for STOP score): Yes STOP Results: Positive - Medications Home Medications: Ambulatory Orders Medication Instructions Recorded aspirin 81 mg tablet,delayed 81 mg PO QDAY 08/10/17 release cholecalciferol (vitamin D3) 1,250 50,000 unit PO QWEEK 08/10/17 mcg (50,000 unit) capsule levothyroxine 75 mcg tablet 75 mcg PO QDAY 08/10/17 tizanidine 2 mg tablet 2 mg PO TID 08/10/17 Handicap Placard #1 ea 02/26/18 amitriptyline 50 mg tablet 75 mg PO QDAY tab 09/23/18 omeprazole 20 mg capsule,delayed 40 mg PO DAILY cap 09/23/18 release promethazine 12.5 mg tablet 12.5 mg PO Q6H PRN 09/23/18 etodolac 500 mg tablet 500 mg PO BID PRN #60 tab 11/30/18 lorazepam 0.5 mg tablet 0.5 mg PO TID PRN tab 04/17/20 potassium chloride 20 mEq 40 meq PO BID 30 Days #120 tab 05/11/20 tablet,extended release(part/cryst) triamterene 37.5 1 tab PO DAILY #30 tab 05/11/20 mg-hydrochlorothiazide 25 mg tablet clopidogrel 75 mg tablet 75 mg PO QDAY #30 tablet 05/25/20 sotalol 120 mg PO BID 06/17/20 - Allergies Allergies/Adverse Reactions: Allergies adhesive Allergy (Verified 05/11/20 10:23) Rash BLISTERS codeine Allergy (Verified 05/11/20 10:23) Other SEVERE HEADACHE morphine Allergy (Verified 05/11/20 10:23) Itching tramadol Adverse Reaction (Verified 05/11/20 10:23) Unknown Advanced Directives - Advanced Directives Power of Cashier Parking Lot: Yes Living Will: Yes Advance Directives Information Provided: No Advance Directives on File: Yes DNR Order?:: No - MOLST See MOLST form: No Past Medical History - Covid-19 Screening Fever: No Unexplained muscle aches: No Current respiratory symptoms: No Upper respiratory infections symptoms: No Gastro-intestinal symptoms: No Ans-Tegf-Oezgbf symptoms: No Has tested positive for COVID-19 in last 30 days: No Had contact w/person w/symptoms or Covid-19 (+) last 14 days: No Has High Risk Exposures ID'd by Health dept/Inf Control team: No 65 years or older:: No Lives in Assisted Living facility:: No Has a chronic lung disease or moderate to severe asthma:: No Has a serious heart condition:: Yes Immunocompromised:: No Severely obese (Body Mass Index of 40 or higher):: Yes Diabetic:: No - Past Medical Illness Medical History: Past Medical History (Last Updated 06/13/20 @ 11:56 by Sade Bruno) Atherosclerotic heart disease of [place] coronary artery without angina pectoris I25.10 Carcinoma of breast C50.919 Cardiomyopathy, dilated I42.0 GERD (gastroesophageal reflux disease) K21.9 Hypotension I95.9 Hypothyroidism E03.9 ICD (implantable cardioverter-defibrillator) in place Z95.810 Obesity E66.9 THALIA (obstructive sleep apnea) G47.33 Paroxysmal tachycardia I47.9 Presence of stent in coronary artery Onset Date: ~06/13/20 Z95.5 Successful CURTIS to the mLAD (Orsiro 3.5 x 15mm stent) per cardiac cath 06/13/20 PTSD (post-traumatic stress disorder) F43.10 Right thyroid nodule E04.1 SVT (supraventricular tachycardia) I47.1 Syncope and collapse R55 Ventricular tachycardia I47.2 - Past Surgical History Surgical History: Past Surgical History (Last Updated 06/13/20 @ 11:56 by Sade Bruno) History of cardiac radiofrequency ablation Z98.890 EPS with inducible VT 02/2000 History of cholecystectomy Z90.49 History of mastectomy Z90.10 Right History of nasal septoplasty Z98.890 History of repair of right rotator cuff Z98.890 went into CARDIAC ARREST 11/2013 History of total hysterectomy Z90.710 Hx of appendectomy Z90.49 Presence of coronary angioplasty implant and graft Onset Date: ~06/13/20 Z95.5 Successful CURTIS to the mLAD (Orsiro 3.5 x 15mm stent) per cardiac cath 06/13/20 thyroid FNA Surgical History: no surgical history Social History - Smoking History Smoking Status: Never smoker Hx Tobacco Use: No Hx Smoking Exposure: No - Alcohol Use Alcohol Usage: Yes - VERY RARE OCCASIONALLY - Substance Abuse Hx Substance Use: No - Occupation Occupation (List type of work in comments):: Unemployed - DISABILITY - Hobbies, Recreation, Social Activities Hobbies: Other - [place] [employer], [employer], [employer]. Recreational Activities: I am able to engage in a few activities Social Environment - Status Marital Status: Single - Current Living Arrangements Living Environment:: Alone - Children How many children do you have?: 2 Do any of your children live nearby?: Yes - Safety Do you feel safe in your surroundings?: Yes Review of Systems - Review of Systems Hints: Right click = Denies ([place]). Left click = Reports ([place]) Review of Present Symptoms: Reports: Shortness of Breath at Rest, Shortness of Breath with Exertion, Fatigue, Heart Arrhythmia/Irregularities - SUPRAVENTRICULAR TACHYCARDIA HAS ICD RATE SET AT 180., Appetite - Special Diet - DIABETIC. Denies: Angina, Dizziness/Lightheadedness, Appetite - Normal - IRREGULAR, SKIPS BREAKFAST., Sleep - Normal - HARD TIME SLEEPING, NEED TO GET BACK IN FOR UPDATED SLEEP STUDY. - Pain Is Patient Pain Free?: Yes Pain Location: none Pain Level: 0/10 Risk Factor Assessment - Chief Complaint Chief Complaint: PATIENT PRESENTS TO CARDIAC REHBA TODAY FOLLWOING RECENT pci INTERVENTION WITH CORONARY STENTING. PATIENT ALSO HAS IMPLANTABLE CARDIOVERTER- DEFIRILLATOR DEVICE. - Vital Signs Temperature: 97.5 F Respiratory Rate: 14 Pulse Ox: 98 Blood Pressure: 142/88 - Pulse Pulse Rate: 96 Pulse Rhythm: Regular - Hypertension Blood Pressure Sitting - Left Arm: 142/88 - Stress Stress: Recent - Obesity Height: 5 ft 3 in Weight:: 272 lb Weight in Pounds: 272.0 lbs Weight Source: Standing Scale Body Mass Index (BMI): 48.2 Nutritional Referral for Obesity: Yes - Physical Inactivity Physical Inactivity: None - Risk Stratification Risk Guidelines: Lowest Risk: Risk Factor for Smoking, Risk Factor for Dyslipidemia, Risk Factor for Depression, Moderate Risk: Risk Factor for Sedentary Lifestyle, Highest Risk: Risk Factor for Obesity, Risk Factor for Hypertension Motivation - Motivation to Participate On a scale of 1 to 10, how prepared are you to commit to attending program?: 9 What do you see as barriers to successfully being able to complete the program?: KNEE (GEL SHOTS IN RIGHT) AND RIGHT ARM TENDERNESS AND NUMBNESS What do you see as the benefits of succesfully completing the program? In other words, what do you hope to get out of participating in the program?: GETTING BETTER, MORE LIFE SPAN, DO WHAT i CANT DO NOW. Are there issues you are dealing with that will interfere with completing the program?: NONE Do you have a spouse or signficant other, family or friends who will help support you to complete the program?: YES
--- NOTE | 2020-07-04 09:55 | CR.ITP_ITS ---
Diagnosis - General Information Admitting Diagnosis: PCI W/CORONARY STENTING Personal Learning Style:: Audio/Visual, Written Barriers to Learning: Vision Impairment Stage of change r/t lifestyle modifications:: Action Gave educational material for:: Treating Heart Disease, Emotions & Heart Disease, Stress Management & Relaxation, Sleep Disorders & Heart Disease, How The Heart Works, What it means to have Heart Disease, How Coronary Artery Disease is Diagnosed, Heart Procedures, What Heart Medications Do, Risk Factors & Modifications, Living an Active Life, Nutrition - Education/Goals Individual Counseling: Initial Assessment: Abnormal Cholesterol Levels, High Blood Pressure, Overweight/Obesity, Hypertension, Low HDL <40/Males or <50/Females, Sedentary Lifestyle Cardiac Rehabilitation Goals: 1. Maintain the individual as the primary focus of care. 2. To improve the patient's quality of life. 3. Identification of cardiac risk factors and provide cardiac risk factor management. 4. Enhance the psychosocial status of the patient. 5. Reconditioning enough to allow the patient to resume customary activities. 6. Control symptoms of cardiac disease Personal Goals: Initial Assessment: Improve management of stress and emotions, Improve energy level, Improve knowledge of cardiac disease, Improve muscle strength and endurance, Improve diet and eating habits (eat healthier), Control risk factors (learn risk factor modification) Scale for measuring improvement of personal goals: Enter appropriate number in Comments. 2 = Unchanged. 3 = Slightly Better. 4 = Moderate Improvement. 5 = Met my Goal - Diagnosis & Disease Process Outcomes/Goals: Pt IDs own risk factors & lifestyle modifications by Session 10, Verbalizes symptoms of angina & response by session 3., Pt independently manages Plan/Interventions: Assist Pt to ID & engage in lifestyle modification to reduce CVD risk, Instruct on individual risk factors, Review symptoms of angina & emergency actions, Review secondary diagnosis & identify educational needs. - Safety Referral to Physical Therapy: No Referral to [facility] Case Management: No Fall Risk Assessed:: Yes Assistive Devices:: None Exercise - Initial Assessment - Visit Date of Eval: 07/04/20 Session #:: 0 - PRE-CARDIAC REHAB Mets: Pre-: >5 METS for 30 minutes by discharge - Physician Prescribed Exercise Modalities: NuStep - PATIENT UNABLE TO USE TREADMILL DUE TO NEED OF KNEE REPLACEMENT, SciFit Frequency: 3x/week for 12 weeks [36 sessions] Intensity: 60-80% of age predicted maximum heart rate reserve Current METSs:: 3.0 Target Heart Rate:: 105-138 Resting Blood Pressure: 126/86 EKG Type: NSR w history of Supra Ventricular Tachycardia has ICD rate set at 180. - Outcomes & Goals Goals:: Verbalizes understanding of THR, RPE & goal METS by session 6, Documents in home exercise log/reports 30 min aerobic 5 day/wk by DC, Demonstrates accurate pulse taking by DC - Intervention & Plan Exercise Program Goals: Instruct on personal THR & RPE, Instruct on MET level & personal MET goal, Show patient to take own pulse /validate performance until accurate, Instruct on home exercise - Physical Activity Home Exercise Physical Activity - Home Exercise: Safe Exercise, Warm-up, Self-monitoring, Cool-Down, Home Exercise > 30 min Daily, Sitting Time <3 hours/daily - Outcomes & Goals Outcomes/Goals: Demonstrates correct Warm-up/exercise Cool-Down (S3) if = 2.5 METs, Verbalizes symptoms of exercise intolerance by Session 3 (S3), Demonstrate safe equipment use (S3) & follows exercise prescrition (6) - Intervention & Plan Plan/Intervention: Instruct warm-up & cool-down if exercising at > 2 METs, Instruct on symptoms of exercise intolerance & actions to take, Instruct & monitor on saf, Assess intial functional capacity & safety risk Nutrition - Initial Assessment - Program Goals Nutrition Program Goals: LDL <100 optimal. 100 - 129 Near optimal. 130 - 159 Borderline High. 160 - 189 High. Total Cholesterol <200 desirable. 200 - 239 Borderline High. >/= 240 High. HDL < 40 Low >/=60 High. Triglycerides <150 desirable. <199 optimal. VlDL 5 - 40. HgbA1C <7%. BMI <25 Patient has diagnosis of Hyperlipidemia (ICD E78)?: Yes - Visit Date of Assessment:: 07/04/20 Session #:: 0 - Pre-cardiac rehab - Cholesterol/Lipids Triglycerides (mg/dL): 0 - unavailable Determine presence & major risk factors that modify LDL goal: Hypertension or hypertensive medication, Family history of premature CHD in Male < 55 years: female <65 yearsFa, Age men > 45 years; women >/= 55 years Outcomes/Goals: Pt IDs own risk factors & lifestyle modifications by Session 10, Verbalizes symptoms of angina & response by session 3., Pt independently manages Intervention/Plan: Instruct on personal lipid levels & lipid goals/NCEP gloria delines, Instruct on cholesterol Referral to dietitian:: Yes - Medical Nutrition Therapy - Diabetes (Other Core Measures) Diabetes Type: Not Applicable - Weight Mgt (Other Care) Not Applicable: No Height: 5 ft 3 in Weight:: 277 lb BMI: 49.0 Diagnosis Overweight/Obesity BMI> 30% ICD-10 E66: Yes Diagnosis High BMI/Morbid Obesity BMI> 35% ICD-10 Z68: Yes Outcomes/Goals: Pt sets, maintains & shows weight loss goal & trend during rehab Intervention/Plan: Instruct on ideal BMI & set weight loss goal w/patient, Assist pt to ID & incorporate diet changes for weight loss by S9, Refer to Structured Weight Loss program as appropriate, Encourage goal of using 250- 300dcal per session for weight loss - Healthy Eating Habits Will attend diet classes:: Yes Outcomes/Goals:: Consume diet rich in vegs,fruits,whole grain/high fiber,fish,lean meat, Limit sat/trans fats,cholesterol & added salts & sugars Intervention/Plan:: Assess current eating habits Nutrition - 30-Day Assessment Nutrition - 60-Day Assessment Nutrition - 90-Day Assessment Nutrition - Final Assessment Medical - Initial Assessment - Visit Date of Eval: 07/04/20 Session #:: 0 - Pre-cardiac rehab - Medication Compliance Preventative Medication(s):: Aspirin, YESI inhibitor, Clopidogrel/P2Y12 inhibit, Statin/lipid, Beta jacqulein H/O mental health issues: depression, anxiety, or addiction?: No Doesn?t believe in the benefits of treatment?: No Believes medications are unnecessary or harmful?: No Has a concern about medication side effects?: No Expresses concern over the cost of medications?: No Outcomes/Goals: Verbalizes medications,desired effect & common side effects @ DC, Pt self-reports following medication regimen, Keeps card in wallet w/medications listed by DC Interventions/plans: Instruct on medication effects & side effects, Review medication list w/patient every two weeks, Instruct importance of taking meds as ordered & assist problem solving - Tobacco Use Tobacco Use: Non-smoker - Hypertension Hypertension Diagnosis:: Hypertension ICD-10 I10 Resting Blood Pressure:: 126/86 [place] [employer] Hypertension Guidelines: [place] [employer] Hypertension Guidelines. Normal BP Less than 120/80. Elevated BP 120/80. Hypertension Stage 1: BP 130-139/80-89. Hypertesnion Stage 2: BP 140 or higher/ 90 or higher. Hypertension Crisis: BP higher than 180/120 Outcomes/Goals: Able to verbalize/achieve optimal blood pressure <130/80, Incorporates diet changes & exercise for blood pressure control by DC Interventions/plan: Instruct on optimal blood pressure, hypertension & medications, Instruct on effects of sodium, alcohol, stress, exercise &hyper tension - Tobacco Cessation Referral Smoking Cessation Referral:: No Individual Education/Counseling:: No Education Schedule Given:: Yes Medical- 30-Day Assessment Medical- 60-Day Assessment Medical- 90-Day Assessment Medical - Final Assessment Psychosocial - Initial Assess - VIsit Date of Eval: 07/04/20 Session #:: 0 - Pre-cardiac rehab Not Applicable: Yes History of previous Mental disease:: No - Psychosocial Test Tool Used:: Ferrans Arturo QOL Cardiac, PHQ-9 Questionnaire phq-9 Severity: Severity. 1-4 Minimal Depression. 5-9 Mild Depression. 10-14 Moderate Depression. 15-19 Moderately Sever Depression. 20-27 Severe Depression. Rule: - Referral to Behavioral Health PS - Interventions: Yes Attend Stress Management Classes, No Referral to [facility] if PHQ-9 score >9:, No Referral to [facility], No Referral to Physician if PHQ-9 if score is 5-9: - Outcomes/Goals: See list Psychosocial Outcomes/Goals:: ID's personal stressors & 2 strategies to manage stress by discharge - Intervention/Plan: See List Interventions/Plan:: Assess stressors,coping strategies & signs of derpression on admission, Instruct/assist pt to develop coping & personal stress Mgt strategies, Instruct patient to recognize signs & symptoms of depression, Instruct patient to recog Psychosocial - 30-Day Assess Psychosocial - 60-Day Assess Psychosocial - 90-Day Assess Psychosocial - Final Assessmen Patient Health Questionnaire Initial Assessment 1. Little interest or pleasure in doing things: Not at all 2. Feeling down, depressed, or hopeless: Several days 3. Trouble falling or staying asleep, or sleeping too much: Nearly every day 4. Feeling tired or having little energy: More than half the days 5. Poor appetite or overeating: Nearly every day 6. Feeling bad about yourself -- or that you are a failure or have let yourself or your family down: Not at all 7. Trouble concentrating on things, such as reading the newspaper or watching television: Nearly every day 8. Moving or speaking so slowly that other people could have noticed. Or the opposite - being so fidgety or restless that you have been moving around a lot more than usual: Not at all 9. Thoughts that you would be better off , or of hurting yourself in some way: Not at all How difficult have these problems made it for you to do your work, take care of things at home, or get along with other people?: Somewhat difficult Total Score: 12 MARCIE-Q SV Test - Statements CAD is a disease of the arteries in the heart: False Examples of risk factors for heart disease: True Angina is chest pain or discomfort: True The benefits of resistance training include: I Don't Know Eating more meat and dairy products: False Anti-platelet medications such as aspirin are important: True The only effective way to manage stress: True An exercise warm-up slowly increases heart rate: True Prepared, processed foods usually have high sodium: True Depression is common after a heart attack: True The statin medications lower cholesterol: True To control blood pressure, lower the amount of sodium: True If someone gets chest discomfort during walking: False Transfats are partially hydrogenated vegetable oils: True Sleep apnea that is not treated increases the risk: I Don't Know To control cholesterol, one should become a vegetarian: I Don't Know Someone knows if he/she is exercising at the right level: I Don't Know Diabetes cannot be prevented with exercise & health eating: False Stress is a large risk for heart attack: True A diet that can help lower blood pressure is rich in: True - Total Score Total Correct Responses: 15 Self-Efficacy Initial Assessment We would like to know how confident you are in doing certain activities. Please select your confidence level for:: Select your confidence level for the following using the scale 1-10 where 1 is not at all confident and 10 is totally confident. Your score is the average of all 6 responses. Fatigue: How confident are you that you can keep the fatigue caused by your d isease from interfering with the things you want to do? Select Number: 2 Physical Discomfort or Pain: How confident are you that you can keep the phys ical discomfort or pain of your disease from interfering with the things you want to do? Select Number: 3 Emotional Distress: How confident are you that you can keep the emotional distress caused by your disease from interfering with the things you want to do? Select Number: 5 Other Symptoms or Health Problems: How confident are you that you can keep other symptoms or health problems from interfering with the things you want to do? Select Number: 5 Different Tasks and Activities: How confident are you that you can do the different tasks and activities needed to manage your health condition so as to reduce your need to see a doctor? Select Number: 5 Medication: How confident are you that you can do things other than just taking medication to reduce how much your illness affects your everyday life? Select Number: 5 Total Score:: 4 Nutrition Survey - Nutrition Survey Initial Have you lost >10 lbs over the past 2 months without trying?: No Are you following a special diet at home for diabetes, low fat, or low salt?: Yes Are you interested in meeting with a dietitian for help understanding your diet?: Yes Do you eat less than 3 meals a day?: Yes Do you eat fatty meats (fletcher, sausage, ribs, etc), fried foods, desserts, large amounts of salad dressings, margarine, butter, or cheese most days?: Yes Do you have food allergies? [Enter types in comment field]: Yes - MUSSEL Do you eat in restaurants more than 3 times a week?: No Do you season food with salt, seasoning salt, or garlic salt?: Yes Do you used canned, boxed, frozen meals, or soups, seasoning packets?: Yes Total Score:: 7
[2020-07-04 10:12] VITALS: BP 142/88; PULSE 96; RESP 14; TEMP 36.4; O2SAT 98; BMI 48.2
[2020-07-04 10:55] VITALS: BP 126/86; BMI 49.0
== END ==
PROVIDERS: PCP Student in an Organized Health Care Education/Training Program; Visit Provider Internal Medicine Cardiovascular Disease
DX: E66.9 Obesity, unspecified (principal); E03.9 Hypothyroidism, unspecified; I25.10 Atherosclerotic heart disease of native coronary artery without angina pectoris

== ENCOUNTER 2020-07-07 15:15 | Outpatient (RCR) | payer MEDICAID, SELFPAY ==
[2020-07-04 10:12] VITALS: BMI 48.2
[2020-07-04 10:55] VITALS: BMI 49.0
== END 2020-07-24 23:59 ==
LOC: CR 15:15
PROVIDERS: PCP Student in an Organized Health Care Education/Training Program; Referring Provider Internal Medicine Cardiovascular Disease; Visit Provider Internal Medicine Cardiovascular Disease
DX: I25.10 Atherosclerotic heart disease of native coronary artery without angina pectoris (principal); Z95.5 Presence of coronary angioplasty implant and graft
CPT/HCPCS: 93798

== ENCOUNTER 2020-07-26 09:33 | Outpatient (RCR) | payer MEDICAID, SELFPAY ==
[2020-07-04 10:55] VITALS: BMI 49.0
[2020-07-14 09:23] VITALS: BMI 49.4
--- NOTE | 2020-08-01 06:13 | CR.ITP_ITS ---
Diagnosis Exercise - 30-day Assessment - Visit Date of Eval: 08/01/20 Session #:: 2 Comments:: Patient has not attended CR services since her last visit on 07/08/2019 due to a fractured toe. She is currently in a boot device and has a scheduled follow-up appointment with her home appliance technician on 08/01/2020. She hopes to learn then when she can resume her CR. Nutrition - Initial Assessment Nutrition - 30-Day Assessment Nutrition - 60-Day Assessment Nutrition - 90-Day Assessment Nutrition - Final Assessment Medical - Initial Assessment Medical- 30-Day Assessment Medical- 60-Day Assessment Medical- 90-Day Assessment Medical - Final Assessment Psychosocial - Initial Assess Psychosocial - 30-Day Assess Psychosocial - 60-Day Assess Psychosocial - 90-Day Assess Psychosocial - Final Assessmen Nutrition Survey
== END 2020-08-23 23:59 ==
LOC: CR 09:33
PROVIDERS: PCP Student in an Organized Health Care Education/Training Program; Referring Provider Internal Medicine Cardiovascular Disease; Visit Provider Internal Medicine Cardiovascular Disease
DX: I25.10 Atherosclerotic heart disease of native coronary artery without angina pectoris (principal); Z95.5 Presence of coronary angioplasty implant and graft
CPT/HCPCS: 93798

== ENCOUNTER 2020-08-25 09:50 | Outpatient (RCR) | payer MEDICAID, SELFPAY ==
[2020-07-04 10:55] VITALS: BMI 49.0
[2020-07-14 09:23] VITALS: BMI 49.4
--- NOTE | 2020-09-01 07:28 | PCM.CR.ITP ---
Diagnosis Exercise - Initial Assessment - Visit Date of Eval: 09/01/20 Session #:: 2 - Patient has no0t attended CR since her visit on 07/07/20 due to a fractured toe. She is currently in a boot device. She hopes to return to CR soon. Nutrition - Initial Assessment Nutrition - 30-Day Assessment Nutrition - 60-Day Assessment Nutrition - 90-Day Assessment Nutrition - Final Assessment Medical - Initial Assessment Medical- 30-Day Assessment Medical- 60-Day Assessment Medical- 90-Day Assessment Medical - Final Assessment Psychosocial - Initial Assess Psychosocial - 30-Day Assess Psychosocial - 60-Day Assess Psychosocial - 90-Day Assess Psychosocial - Final Assessmen Nutrition Survey
== END 2020-09-23 23:59 ==
LOC: CR 09:50
PROVIDERS: PCP Student in an Organized Health Care Education/Training Program; Referring Provider Internal Medicine Cardiovascular Disease; Visit Provider Internal Medicine Cardiovascular Disease
DX: I25.10 Atherosclerotic heart disease of native coronary artery without angina pectoris (principal); Z95.5 Presence of coronary angioplasty implant and graft
CPT/HCPCS: 93798

== ENCOUNTER → 2021-01-16 10:46 | Outpatient (CLI) | payer MEDICAID, SELFPAY ==
[2020-07-04 10:55] VITALS: BMI 49.0
[2021-01-16 11:46] LABS: Absolute Lymphocyte Count 1.78 X10^3/uL (0.83-4.51); Absolute Neutrophil Count 6.4 X10^3/uL (2.0-7.7); Basophil# 0.05 X10^3/uL; Basophil% 0.6 % (0-1); Eosinophil# 0.16 X10^3/uL; Eosinophils% 1.8 % (0-5); Hematocrit 46.5 % (37-47); Hemoglobin 15.1 g/dL (12.0-15.0); Lymphocyte # 1.78 X10^3/ul (0.83-4.51); Lymphocyte % 19.7 % (19-41); Mean Corp Hgb Conc 32.5 g/dL (32-36); Mean Corpuscular Hgb 27.9 pg (27.0-32.0); Mean Platelet Vol. 11.4 fl (6.2-12.0); Monocyte# 0.53 X10^3/uL; Monocyte% 5.9 % (0-10); NRBC Flagged by Analyzer 0 % (0-5); Neutrophil # 6.44 X10^3/uL (2.7-7.7); Neutrophil % 71.3 % (47-70); Platelet Count 256 K/mm3 (150-450); RBC Distribution Width CV 15.2 % (11.6-14.6); Red Blood Count 5.41 M/mm3 (4.2-5.4)
[2021-01-16 12:33] LABS: ALB/GLOB Ratio 0.8 RATIO (0.9-2.4); AST(SGOT) 24 U/L (15-37); Alanine Aminotransfer ALT/SGPT 44 U/L (13-56); Albumin, Serum 3.5 g/dL (3.2-5.0); Alkaline Phosphatase 76 U/L (45-117); Anion Gap 6 (5-15); BUN 17 mg/dL (7-18); BUN/Creat Ratio 19.8 RATIO (10-20); Calcium,Total 9.4 mg/dL (8.5-10.1); Chloride 106 mmol/L (98-107); Cholesterol 112 mg/dL (200); Creatinine, Serum 0.86 mg/dL (0.55-1.02); EST Glomerular Filtration Rate 72 mL/min (>60); Est Glom Filt Rate - Afr Amer 87 mL/min (>60); Free T3 2.1 pg/mL (2.18-3.98); Globulin 4.4 g/dL (2.2-4.2); Glucose 111 mg/dL (74-106); High Density Lipoprotein 53 mg/dL; Protein, Total 7.9 g/dL (6.4-8.2); Sodium Level 138 mmol/L (136-145); T4 Free Direct 1.16 ng/dL (0.76-1.46); Thyroid Stim Hormone (TSH) 0.85 uIU/mL (0.358-3.74); Triglycerides 111 mg/dL; Very Low Density Lipoprotein 22 mg/dL (5-40)
[2021-01-16 12:38] LABS: AST(SGOT) 27 U/L (15-37); Alanine Aminotransfer ALT/SGPT 43 U/L (13-56); Albumin, Serum 3.4 g/dL (3.2-5.0); Alkaline Phosphatase 75 U/L (45-117); Bilirubin, Direct 0.29 mg/dL (0.00-0.30); Cholesterol 112 mg/dL (200); Globulin 4.6 g/dL (2.2-4.2); High Density Lipoprotein 53 mg/dL; Triglycerides 111 mg/dL; Very Low Density Lipoprotein 22 mg/dL (5-40)
[2021-01-17 13:45] LABS: Thyroid Peroxidase AB 11 IU/mL (0-34)
== END ==
PROVIDERS: PCP Student in an Organized Health Care Education/Training Program; Referring Provider Nurse Practitioner Family; Visit Provider Nurse Practitioner Family
DX: L65.9 Nonscarring hair loss, unspecified (principal); E55.9 Vitamin D deficiency, unspecified; E03.9 Hypothyroidism, unspecified; I25.10 Atherosclerotic heart disease of native coronary artery without angina pectoris
CPT/HCPCS: 36415; 80053; 80061; 80076; 82746; 84439; 84443; 84481; 85025; 86376

== ENCOUNTER → 2021-06-14 | Outpatient (CLI) | payer MEDICAID, SELFPAY ==
[2020-07-04 10:55] VITALS: BMI 49.0
--- NOTE | 2021-06-14 | ASPS_PTH ---
PATIENT: ALEJANDRA KINSEY LOC: [facility] U#:[id number] AGE/SX: 56/F ROOM: RE06/14/[address]: Dr. Jossue Waters MD : 1965 BED: DIS: 06/14/2021 SPEC #: [id number] RECD: 06/14/21 15:41 STATUS: AILYN [place] #: [id number] LILIA: 06/14/21 00:[address]: Jossue Waters DEPT: CYTOLOGY RECD BY: Berlin Ortiz ENTERED: 06/15/21 10:53 SP TYPE: ASPIRATION OTHR DR: Dr. Wellington Melvin, DO Tissues: Thyroid gland, NOS Procedures: Special Stain Group II Cytology Other HEADER OPERATION: Right thyroid fine needle aspiration PRE-OP DIAGNOSIS: Right thyroid nodule TISSUE SUBMITTED: Right thyroid nodule x6 slides DIAGNOSIS CYTOLOGY Right thyroid nodule, fine needle aspiration (smears): Consistent with benign follicular nodule ([place] category II). Adequate for evaluation. See comment. NI:tracie 06/18/2021 COMMENT Correlation with clinical, radiologic findings and appropriate follow up are necessary. Please make reference to previous specimen ([id number]) right thyroid, FNA with diagnosis of benign cystic follicular nodule. CYTOLOGY STUDY Slides are reviewed. CYTOLOGY GROSS Received are six smears labeled with the patient's name and designated per the requisition as right thyroid nodule. Submitted for staining. / tracie 06/15/2021 TC:5 CPT: 45075
== END | disposition home or self-care (01) ==
LOC: LABSPEC 15:47
PROVIDERS: PCP Student in an Organized Health Care Education/Training Program; Visit Provider Surgery
DX: E04.1 Nontoxic single thyroid nodule (principal)
CPT/HCPCS: 88161; 88313

== ENCOUNTER 2021-07-10 09:43 | Day surgery (SDC) | payer MEDICAID, SELFPAY ==
[2020-07-04 10:55] VITALS: BMI 49.0
[2021-07-10] VITALS (7 sets, daily range): BP systolic 103–149; BP diastolic 72–89; PULSE 16–76; RESP 16; TEMP 21.1–36.8; O2SAT 98–100; BMI 44.6
--- NOTE | 2021-07-10 | COLBX_PTH ---
PATIENT: ALEJANDRA KINSEY LOC: [facility] U#:[id number] AGE/SX: 56/F ROOM: RE07/10/[address]: Dr. Jossue Waters MD : 1965 BED: DIS: 07/10/2021 SPEC #: [id number] RECD: 07/10/21 13:09 STATUS: AILYN [place] #: [id number] LILIA: 07/10/21 00:[address]: Jossue Waters DEPT: SURGICAL PATHOLOGY RECD BY: Berlin Ortiz ENTERED: 07/10/21 13:10 SP TYPE: COLON BX OT DR: Dr. Wellington Melvin DO Tissues: A - Sigmoid colon biopsy B - Rectum, NOS Procedures: Surgery Specimen Level IV HEADER OPERATION: Colonoscopy (MAC) with biopsy PRE-OP DIAGNOSIS: History of colonic polyps TISSUE SUBMITTED: A ? Distal sigmoid biopsy, B ? Rectum biopsy MICROSCOPIC DIAGNOSIS A. Distal sigmoid colon, biopsy: Fragments of colonic mucosa with hyperplastic change. B. Rectum, biopsy: Fragments of hyperplastic polyp. AM:tracie 07/11/2021 MICROSCOPIC DESCRIPTION Slides are reviewed. GROSS DESCRIPTION A - Received in fixative is one container labeled with the patient's name and designated distal sigmoid biopsy. The specimen consists of two irregular fragments of light bray soft tissue that in aggregate measure 0.6 x 0.3 x 0.1 cm. The specimen is totally submitted in one cassette. B - Received in fixative is one container labeled with the patient's name and designated rectum biopsy. The specimen consists of two irregular fragments of light bray soft tissue that in aggregate measure 0.6 x 0.2 x 0.1 cm. The specimen is totally submitted in one cassette. / SJ:tracie 07/10/2021 TC:5 [facility]: [id number] x2
--- NOTE | 2021-07-10 10:11 | PCM.HP.BLA ---
History and Physical Date of Admission: 07/10/21 Intake Intake Visit Reasons: right thyroid FNA/ schedule c-scope--PLAVIX Chief Complaint: right thyroid nodule FNA Store Clerk Cashier Required: No Is patient in pain?: No Allergies adhesive Allergy (Verified 06/14/21 09:22) Rash codeine Allergy (Verified 06/14/21 09:22) Other morphine Allergy (Verified 06/14/21 09:22) Itching tramadol Adverse Reaction (Verified 06/14/21 09:22) Unknown Medications aspirin 81 mg tablet,delayed release 81 mg PO QDAY 08/10/17 [History Confirmed 06/14/21] cholecalciferol (vitamin D3) 1,250 mcg (50,000 unit) capsule 50,000 unit PO QWEEK 08/10/17 [History Confirmed 06/14/21] levothyroxine 75 mcg tablet 75 mcg PO QDAY 08/10/17 [History Confirmed 06/14/21] Handicap Placard #1 ea 02/26/18 [Rx Confirmed 06/14/21] omeprazole 20 mg capsule,delayed release 40 mg PO DAILY cap 09/23/18 [History Confirmed 06/14/21] atorvastatin 40 mg tablet 40 mg PO QHS #90 tab 07/14/20 [Rx Confirmed 06/14/21] Blood pressure Cuff #1 ea 10/17/20 [Rx Confirmed 06/14/21] gabapentin 100 mg capsule 100 mg PO QHS 10/17/20 [History Confirmed 06/14/21] sotalol 120 mg tablet 120 mg PO BID #180 tab 11/06/20 [Rx Confirmed 06/14/21] amitriptyline 50 mg tablet 100 mg PO QDAY tab 02/26/21 [History Confirmed 06/14/21] temazepam 15 mg capsule 15 mg PO QHS PRN cap 02/26/21 [History Confirmed 06/14/21] tizanidine 2 mg tablet 4 mg PO BID tab 02/26/21 [History Confirmed 06/14/21] triamcinolone acetonide 0.1 % topical cream 1 applic TOPICAL BID g 02/26/21 [History Confirmed 06/14/21] triamterene 37.5 mg-hydrochlorothiazide 25 mg tablet 1 tab PO DAILY #90 tab 05/14/21 [Rx Confirmed 06/14/21] clopidogrel 75 mg tablet 75 mg PO QDAY #30 tablet 05/30/21 [Rx Confirmed 06/14/21] amlodipine 5 mg tablet 5 mg PO DAILY tab 06/01/21 [History Confirmed 06/14/21] etodolac 500 mg tablet 500 mg PO BID PRN tab 06/01/21 [History Confirmed 06/14/21] lorazepam 0.5 mg tablet 0.5 mg PO BID PRN tab 06/01/21 [History Confirmed 06/14/21] potassium chloride 20 mEq tablet,extended release 20 meq PO BID 06/01/21 [History Confirmed 06/14/21] [facility] Medical History (Updated 06/01/21 @ 10:[address] 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 Cardiomyopathy, dilated GERD (gastroesophageal reflux disease) Hypotension Hypothyroidism ICD (implantable cardioverter-defibrillator) in place Melanoma Obesity THALIA (obstructive sleep apnea) Paroxysmal tachycardia Preoperative cardiovascular examination Presence of stent in coronary artery (~06/13/20) PTSD (post-traumatic stress disorder) Right thyroid nodule SVT (supraventricular tachycardia) Syncope and collapse Ventricular tachycardia Surgical History History of cardiac radiofrequency ablation History of cholecystectomy History of mastectomy History of nasal septoplasty History of repair of right rotator cuff History of total hysterectomy Hx of appendectomy Presence of coronary angioplasty implant and graft (~06/13/20) thyroid FNA Family History Mother Heart disease Hypertension Father Heart disease Hypertension CVA (cerebral vascular accident) Social History Smoking Status: Never smoker alcohol intake: never substance use type: does not use what type of physical activity do you participate in: walking frequency: 1-2 times per week HPI HPI HPI: ALEJANDRA KINSEY, is a 56 F who presents to the office today for ultrasound-guided fine-needle aspiration right thyroid. She was previously seen in the office February 2021 but because of cardiology requirement that she remain on clopidogrel antiplatelet agent I delayed the fine-needle aspiration until now. The patient has 2 right thyroid nodules. The inferior nodule that measures 1.3 x 1.1 x 0.7 cm is felt to be of most interest. There is a smaller right superior thyroid nodule that measures 0.8 x 0.6 x 0.5 cm. It is also of note that the patient is to be scheduled to have a surveillance colonoscopy as she has a personal history of colon polyps. We would want to hold her clopidogrel 1 day prior to her colonoscopy. The patient states that since her previous office visit she continues to do well. There is been no acute change in her health. As per Dr. Chris Bang's instruction she has been off of her clopidogrel for 5 days. Exam Const General: cooperative, comfortable and no acute distress Nutritional Appearance: obese morbidly obese [facility] Head: normal to inspection Eyes General: appearance normal, both eyes and all related structures Resp Effort & Inspection: normal respiratory effort Auscultation: clear to auscultation bilaterally Cardio Rate: regular rate Rhythm: regular rhythm GI Palpation: soft Other: Notably overweight Skin General: no rashes or lesions noted Neuro General: patient alert and patient awake Extrem General: no calf tenderness Psych Affect: anxious affect Office Procedures Fine Needle Aspiration Provider Documentation Details: Ultrasound-guided fine-needle aspiration inferior right lobe thyroid Timeout informed consent was obtained. The patient was taken to the procedure room placed on the table. The neck was gently extended prep with Betadine. Ultrasound was performed identifying the right thyroid. It is of note that the thyroid was inspected and was generally noted to be small. The nodule in the right mid to inferior lobe actually quite vague and difficult to appreciate. Approximately 1 cm in diameter. Under ultrasound guidance 1% lidocaine was used as a local anesthetic. A total of 1 cc was used. Then I used a 25-gauge needle and admittedly due to the patient's body habitus I did have some difficulty in aligning the needle with the small nodule and small thyroid. Rapid [id number] motion was performed. Specimen was obtained and smeared out on slides. I felt that I got 1 particularly good aspirate. The patient had some discomfort with the procedure. Based upon what I was visualizing and how well she was tolerating the procedure I elected to stop with 4 attempted samples. She was given activity and wound care instructions will be notified of cytology. Jossue Waters M.D., F.A.C.S. FNA [id number] Thyroid Procedure Time Out Time Out Informed consent given: Yes Consent signed: Yes Time out checklist: patient, procedure, site marked/identified, positioning of patient, supplies available, allergies confirmed and team agrees on procedure Time out staff in room: Yes Time out verified: Yes Time out date: 06/14/21 Time out time: 09:23 Assessment and Plan Assessment and Plan (1) Personal history of colonic polyps: Status: Acute (2) Right thyroid nodule: Status: Acute Plan - Dr. Jossue Waters MD: We were able to successfully perform an ultrasound-guided fine-needle aspiration of a right thyroid nodule. It is of note that this was technically difficult. The patient's thyroid is small nodule small. The patient quite anxious about the procedure. Believe that I got diagnostic material. I anticipate based upon visualization it is likely a benign finding. Patient will be notified of cytology at this point I anticipate likely follow-up ultrasound at 1 year. Regarding the patient screening colonoscopy. There is some concern that when she had shoulder surgery she had an air embolus. I do not perceive that we should have that type of difficulty with monitored anesthesia care provided by anesthesia. The patient is aware of the technique, benefit, risk and alternatives. We will schedule procedure at her discretion. Copy: Dr. Wellington Waters M.D., F.A.C.S.
--- NOTE | 2021-07-10 12:08 | OP.COLON_ITS ---
Patient Name: Mary Villanueva Procedure Date: 07/10/2021 11:36 AM Date of : 1965 Age: 56 Procedure: Colonoscopy Indications: High risk colon cancer surveillance: Personal history of colonic polyps Providers: Jossue Waters MD Medicines: See the Anesthesia note for documentation of the administered medications Patient Profile: Last Colonoscopy: 5 years ago. Complications: No immediate complications. Procedure: Pre-Anesthesia Assessment: - Prior to the procedure, a History and Physical was performed, and patient medications and allergies were reviewed. The patient's tolerance of previous anesthesia was also reviewed. The risks and benefits of the procedure and the sedation options and risks were discussed with the patient. All questions were answered, and informed consent was obtained. Prior Anticoagulants: The patient has taken Plavix (clopidogrel), last dose was 1 day prior to procedure. ASA Grade Assessment: III - A patient with severe systemic disease. After reviewing the risks and benefits, the patient was deemed in satisfactory condition to undergo the procedure. After I obtained informed consent, the scope was passed under direct vision. Throughout the procedure, the patient's blood pressure, pulse, and oxygen saturations were monitored continuously. The colonoscope was introduced through the anus and advanced to the cecum, identified by appendiceal orifice and ileocecal valve. The colonoscopy was performed without difficulty. The patient tolerated the procedure well. The quality of the bowel preparation was adequate to identify polyps. The ileocecal valve and the appendiceal orifice were photographed. Scope In: 11:45:46 AM Scope Withdrawal Time 0 hours 8 minutes 46 seconds Scope Out: 12:02:29 PM Total Procedure Duration Time 0 hours 16 minutes 43 seconds Findings: The digital rectal exam findings include non-thrombosed external hemorrhoids, non-thrombosed internal hemorrhoids and internal hemorrhoids that prolapse with straining, but spontaneously regress to the resting position (Grade II). A 4 mm polyp was found in the distal sigmoid colon. The polyp was sessile. The polyp was removed with a cold biopsy forceps. Resection and retrieval were complete. A 4 mm polyp was found in the rectum. The polyp was sessile. The polyp was removed with a cold biopsy forceps. Resection and retrieval were complete. A few diverticula were found in the sigmoid colon. Impression: - Non-thrombosed external hemorrhoids, non-thrombosed internal hemorrhoids and internal hemorrhoids that prolapse with straining, but spontaneously regress to the resting position (Grade II) found on digital rectal exam. - One 4 mm polyp in the distal sigmoid colon, removed with a cold biopsy forceps. Resected and retrieved. - One 4 mm polyp in the rectum, removed with a cold biopsy forceps. Resected and retrieved. - Diverticulosis in the sigmoid colon. Recommendation: - Discharge patient to home. - Resume previous diet. - Continue present medications. - Repeat colonoscopy in 5 years for surveillance based on pathology results. - Telephone my office for pathology results in 1 week. Procedure Code(s): --- Professional --- 18623, Colonoscopy, flexible; with biopsy, single or multiple Diagnosis Code(s): --- Professional --- Z86.010, Personal history of colonic polyps K64.1, Second degree hemorrhoids K64.4, Residual hemorrhoidal skin tags D12.5, Benign neoplasm of sigmoid colon K62.1, Rectal polyp K57.30, Diverticulosis of large intestine without perforation or abscess without bleeding CPT copyright 2017 [employer]. All rights reserved. The codes documented in this report are preliminary and upon fiberglass machine operator review may be revised to meet current compliance requirements. Jossue Waters MD 07/10/2021 12:08:13 PM This report has been signed electronically. Number of Addenda: 0 Note Initiated On: 07/10/2021 11:36 AM
--- NOTE | 2021-07-10 12:09 | OP.CCLET_ITS ---
07/10/2021 Wellington Melvin [address] [place] [address] Re : Colonoscopy procedure for Mary Rich Dear Dr. Melvin This procedure was performed on Saturday, July 10, 2021. My impressions and recommendations are as follows: Impressions : - Non-thrombosed external hemorrhoids, non-thrombosed internal hemorrhoids and internal hemorrhoids that prolapse with straining, but spontaneously regress to the resting position (Grade II) found on digital rectal exam. - One 4 mm polyp in the distal sigmoid colon, removed with a cold biopsy forceps. Resected and retrieved. - One 4 mm polyp in the rectum, removed with a cold biopsy forceps. Resected and retrieved. - Diverticulosis in the sigmoid colon. Recommendations : - Discharge patient to home. - Resume previous diet. - Continue present medications. - Repeat colonoscopy in 5 years for surveillance based on pathology results. - Telephone my office for pathology results in 1 week. My findings are described in the full procedure note, which is enclosed. If I can be of further assistance, please feel free to contact me at Doctor phone number(s): Work: . Sincerely, Jossue Waters MD 07/10/2021 12:08:13 PM This report has been signed electronically.
== END 2021-07-10 12:45 | disposition home or self-care (01) ==
LOC: EN 09:43 → AC 09:44
PROVIDERS: PCP Student in an Organized Health Care Education/Training Program; Referring Provider Student in an Organized Health Care Education/Training Program; Visit Provider Surgery
PROC: 0DJD8ZZ Inspection of Lower Intestinal Tract, Via Natural or Artificial Opening Endoscopic (ICD-10-PCS; CPT 45378; principal; 2021-07-10 10:55)
DX: Z12.11 Encounter for screening for malignant neoplasm of colon (principal); I42.0 Dilated cardiomyopathy; E66.01 Morbid (severe) obesity due to excess calories; Z68.41 Body mass index [BMI] 40.0-44.9, adult; K62.1 Rectal polyp; K63.5 Polyp of colon; K57.30 Diverticulosis of large intestine without perforation or abscess without bleeding; E04.1 Nontoxic single thyroid nodule; I25.10 Atherosclerotic heart disease of native coronary artery without angina pectoris; K64.4 Residual hemorrhoidal skin tags; G47.33 Obstructive sleep apnea (adult) (pediatric); I10 Essential (primary) hypertension; K21.9 Gastro-esophageal reflux disease without esophagitis; E78.00 Pure hypercholesterolemia, unspecified; E03.9 Hypothyroidism, unspecified; K64.1 Second degree hemorrhoids; Z86.010 Personal history of colon polyps; Z79.82 Long term (current) use of aspirin; Z79.899 Other long term (current) drug therapy; Z79.01 Long term (current) use of anticoagulants; Z95.5 Presence of coronary angioplasty implant and graft; Z86.711 Personal history of pulmonary embolism
CPT/HCPCS: 45380; 88305; J7120; J2405

== ENCOUNTER → 2023-04-29 | Outpatient (CLI) | payer MEDICAID, SELFPAY ==
[2020-07-04 10:55] VITALS: BMI 49.0
--- NOTE | 2023-04-29 12:47 | ECHOD_ITS ---
Reason For Study: CAD, CMP Procedure This was a 2D Doppler, Color Flow transthoracic echocardiogram. UNABLE TO USE DEFINITY DUE TO PRIOR ADVERSE REACTION. Exam performed in department. Left Ventricle Normal size and thickness. The left ventricular ejection fraction is 50 %. No evidence for diastolic dysfunction. Right Ventricle ICD or pacer leads identified within the right ventricle. Atria The left and right atria are normal. ICD or pacer leads identified within the right atrium. Mitral Valve Mild (1+) mitral valve insufficiency. Tricuspid Valve Mild tricuspid valve insufficiency. Aortic Valve Trisinus/trileaflet aortic valve. Pulmonic Valve The pulmonic valve is not well visualized. Trivial pulmonic valve insufficiency. Great Vessels Normal sized aortic root. Pericardium/Pleural No pericardial effusion. MMode/2D Measurements & Calculations LVIDd: 4.4 cm IVSd: 0.94 cm Ao root diam: 2.8 cm LVIDs: 3.3 cm LVPWd: 0.97 cm RVDd: 3.6 cm FS: 24.4 % LAV(MOD-bp): 40.1 ml LVAd ap4: 26.1 cm2 LVAd ap2: 25.6 cm2 LAV(MOD-bp) Indexed: 19.7 ml/m2 LVLd ap4: 7.9 cm LVLd ap2: 8.0 cm LAV(MOD-sp2): 38.7 ml EDV(MOD-sp4): 71.9 ml EDV(MOD-sp2): 68.8 ml LAV(MOD-sp4): 38.4 ml EDV(sp4-el): 73.5 ml EDV(sp2-el): 69.7 ml LVAs ap4: 17.8 cm2 LVAs ap2: 16.4 cm2 LVLs ap4: 6.7 cm LVLs ap2: 7.0 cm ESV(MOD-sp4): 40.3 ml ESV(MOD-sp2): 33.4 ml ESV(sp4-el): 40.1 ml ESV(sp2-el): 32.3 ml EF(MOD-sp4): 44.0 % EF(MOD-sp2): 51.5 % EF(sp4-el): 45.5 % SV(MOD-sp4): 31.7 ml SV(MOD-sp2): 35.4 ml SV(sp4-el): 33.4 ml LA dimension(2D): 3.3 cm LA A4 area: 16.2 cm2 RA A4 area: 11.6 cm2 TAPSE: 2.2 cm Time Measurements MV dec time: 0.21 sec Doppler Measurements & Calculations MV E max ran: 61.1 cm/sec Lat Peak E' Ran: 9.4 cm/sec Med Peak E' Ran: 5.9 cm/sec MV A max ran: 80.8 cm/sec E/E' lat: 6.5 E/E' med: 10.4 MV E/A: 0.76 MV dec slope: 296.1 cm/sec2 Ao V2 max: 107.2 cm/sec LV V1 max: 100.3 cm/sec Ao max P.6 mmHg LV V1 max P.0 mmHg Ao V2 mean: 73.2 cm/sec LV V1 mean P.1 mmHg Ao mean P.4 mmHg LV V1 mean: 67.9 cm/sec Ao V2 VTI: 24.8 cm LV V1 VTI: 21.2 cm AV (velocity ratio): 0.86 TV V2 max: 143.4 cm/sec PA V2 max: 87.4 cm/sec TR max ran: 223.1 cm/sec TV max P.2 mmHg PA V2 mean: 63.6 cm/sec TR max P.9 mmHg TV V2 mean: 92.8 cm/sec TV mean P.8 mmHg ECHO/Echo Complete Interpretation Summary The left ventricular ejection fraction is 50 %. No evidence for diastolic dysfunction. Mild (1+) mitral valve insufficiency. Mild tricuspid valve insufficiency. Ordering Physician: Minh Wiseman Referring Physician: Wellington Melvin Performed By: Neli Fontenot RDCS
[2023-04-29 15:06] LABS: Anion Gap -1 (5-15); BUN 24 mg/dL (7-18); BUN/Creat Ratio 30.5 RATIO (10-20); Calcium,Total 9.9 mg/dL (8.5-10.1); Chloride 109 mmol/L (98-107); Creatinine, Serum 0.79 mg/dL (0.55-1.02); EST Glomerular Filtration Rate 79 mL/min (>60); Est Glom Filt Rate - Afr Amer 96 mL/min (>60); Glucose 97 mg/dL (74-106); Potassium 4.8 mmol/L (3.5-5.1); Sodium Level 139 mmol/L (136-145)
== END | disposition home or self-care (01) ==
PROVIDERS: PCP Student in an Organized Health Care Education/Training Program; Referring Provider Internal Medicine Cardiovascular Disease; Visit Provider Internal Medicine Cardiovascular Disease
DX: I42.0 Dilated cardiomyopathy (principal); Z95.5 Presence of coronary angioplasty implant and graft; Z87.448 Personal history of other diseases of urinary system
CPT/HCPCS: 36415; 80048; 93306